=== PATIENT | male | born 1950 | race Caucasian/White ===

== ENCOUNTER → 2018-02-17 08:50 | Outpatient (CLI) | payer OTHER, SELFPAY ==
[2018-02-17 09:24] LABS: Add Manual Diff / Slide Review NO; Eosinophils Percent Auto 2.9 % (2-4); Hematocrit 51.8 % (41-53); Hemoglobin 17.7 g/dL (13.5-17.5); Lymphocytes Percent Auto 36.2 % (25-40); Mean Corpuscular HGB Conc 34.1 % (30-36); Mean Corpuscular Hemoglobin 30.8 PG (26-34); Mean Corpuscular Volume 90.3 fL (80-100); Monocytes Percent Auto 9.7 % (3-14); Neutrophils Absolute Auto 4300 /uL (3000-5900); Neutrophils Percent Auto 50.2 % (50-75); Platelet Count 150 X10^3/uL (150-400); Red Blood Cell Count 5.74 X10^6/uL (4.5-5.9); Red Cell Distribution Width 14.5 % (11.6-14.8); White Blood Cell Count 8.5 X10^3/uL (4.5-11.0)
[2018-02-17 09:28] LABS: Alanine Aminotransferase 32 IU/L (21-72); Albumin 4.4 g/dL (3.5-5.0); Albumin Globulin Ratio 1.6 (1.0-2.8); Alkaline Phosphatase 39 U/L (38-126); Aspartate Aminotransferase 42 IU/L (17-59); BUN Creatinine Ratio 18.9 (6-22); Bilirubin Total 1.5 mg/dL (0.2-1.3); Blood Urea Nitrogen 17 mg/dL (9-20); Calcium 9.3 mg/dL (8.4-10.2); Carbon Dioxide 26 mmol/L (22-32); Chloride 102 mmol/L (98-107); Estimated Glomerular Filt Rate > 60.0 mL/min (>60); Globulin 2.8 g/dL (1.7-4.1); Glucose 103 mg/dL (80-110); Potassium 4.4 mmol/L (3.4-5.1); Sodium 136 mmol/L (137-145); Total Protein 7.2 g/dL (6.3-8.2)
[2018-02-17 09:39] LABS: HEMOLYSIS 79 (0-50)
[2018-02-17 09:58] LABS: Carcinoembryonic Antigen 1.9 ng/mL (0.1-3.0)
== END ==
PROVIDERS: Family Provider Internal Medicine; PCP Internal Medicine; Visit Provider Nurse Practitioner Gerontology
DX: C18.9 Malignant neoplasm of colon, unspecified (principal)
CPT/HCPCS: 80053; 82378; 85025

== ENCOUNTER → 2018-05-29 07:44 | Outpatient (CLI) | payer OTHER, SELFPAY ==
[2018-05-29 08:46] LABS: Alanine Aminotransferase 38 IU/L (21-72); Albumin 4.5 g/dL (3.5-5.0); Albumin Globulin Ratio 1.6 (1.0-2.8); Alkaline Phosphatase 48 U/L (38-126); Aspartate Aminotransferase 34 IU/L (17-59); BUN Creatinine Ratio 17.8 (6-22); Bilirubin Total 1.5 mg/dL (0.2-1.3); Blood Urea Nitrogen 16 mg/dL (9-20); Calcium 9.9 mg/dL (8.4-10.2); Carbon Dioxide 30 mmol/L (22-32); Chloride 102 mmol/L (98-107); Estimated Glomerular Filt Rate > 60.0 mL/min (>60); Globulin 2.9 g/dL (1.7-4.1); Glucose 103 mg/dL (80-110); HEMOLYSIS < 15 (0-50); Potassium 4.6 mmol/L (3.4-5.1); Sodium 143 mmol/L (137-145); Total Protein 7.4 g/dL (6.3-8.2)
[2018-05-29 09:14] LABS: Add Manual Diff / Slide Review NO; Basophils Percent Auto 0.9 % (0-2); Eosinophils Percent Auto 3.8 % (2-4); Lymphocytes Percent Auto 34.9 % (25-40); Mean Corpuscular HGB Conc 33.4 % (30-36); Mean Corpuscular Volume 89.9 fL (80-100); Monocytes Percent Auto 9.3 % (3-14); Neutrophils Absolute Auto 3700 /uL (3000-5900); Neutrophils Percent Auto 51.1 % (50-75); Platelet Count 167 X10^3/uL (150-400); Red Blood Cell Count 6.01 X10^6/uL (4.5-5.9); Red Cell Distribution Width 14.2 % (11.6-14.8); White Blood Cell Count 7.1 X10^3/uL (4.5-11.0)
--- NOTE | 2018-05-29 09:21 | DI.CT.S_ITS ---
PROCEDURE: CT CHEST ABD PEL W CON INDICATIONS: follow up surveillance colon cancer TECHNIQUE: After the administration of oral and intravenous contrast, 5 mm thick sections acquired from the lung apices to the symphysis. 5 mm coronal and sagittal reformats were performed, with additional 7 mm coronal MIP reformats through the lungs. For radiation dose reduction, the following was used: automated exposure control, adjustment of mA and/or kV according to patient size. COMPARISON: Outside Facility, RG, CT CHEST/ABD/PEL W/CONTRAST, 06/01/2016, 14:52. Outside Facility, RG, CT CHEST/ABD/PEL W/CONTRAST, 05/27/2015, 15:36. Outside [facility], RG, CT THORAX/ABDOMEN/PELVIS WITH CONTRAST, 05/27/2014, 15:27. [facility], CT, CHEST/ABD/PEL WITH CONTRAST, 05/30/2017, 11:03. Outside Facility, RG, CT THORAX/ABDOMEN/PELVIS WITH CONTRAST, 05/17/2013, 13:53. Outside Facility, RG, CT THORAX WITH CONTRAST, 06/26/2013, 11:01. (The outside CT reports are absent or incomplete.) FINDINGS: Image quality: Excellent. CHEST: Lungs and pleura: No acute airspace opacities. Within the left upper lobe on series 3 image 34, there is a 3-4 mm nodule again seen, and is unchanged compared to priors dating back to 2013. No additional pulmonary nodules are detected. No pleural effusions or pneumothorax. Central and peripheral airways appear patent and normal in caliber. Mediastinum: Heart size is normal. Coronary artery calcifications are seen. No pericardial effusion. No mediastinal or hilar adenopathy by size criteria. Thoracic aorta and central pulmonary arteries are normal in size. Esophagus is normal in caliber. No hiatal hernia. Chest wall: No axillary or supraclavicular adenopathy by size criteria. Thyroid gland demonstrates no significant CT abnormality. ABDOMEN: Solid organs: Liver is normal in size and enhancement. Gallbladder demonstrates no significant CT abnormality. Biliary system is non dilated. Pancreas enhances normally. Spleen is normal in size and enhancement. No adrenal nodules. Kidneys demonstrate normal size and enhancement, without hydronephrosis. Incidental note is made of a circumaortic left renal vein. Peritoneum and bowel: Status post right partial colectomy. Bowel loops demonstrate normal wall thickness and caliber. No free fluid or air. Diverticulosis is seen, without findings of active diverticulitis. Nodes and vessels: No retroperitoneal or mesenteric adenopathy by size criteria. Aorta and inferior vena cava are normal in size. Atherosclerotic calcification is noted. Miscellaneous: No ventral hernias. PELVIS: Genitourinary: Bladder wall thickness is normal. The prostate gland is prominent, measuring 6 cm transversely. Miscellaneous: No inguinal adenopathy. Bilateral fat containing inguinal hernias are seen, left worse than right. Bones: No suspicious bony lesions. No vertebral body compression fractures. Mild dextroconvex scoliotic curvature is seen. Degenerative changes are seen, which are most prominent of the lower lumbar spine. IMPRESSION: Status post right hemicolectomy. No findings of local recurrence are seen. There is a stable 3-4 mm nodule involving the left upper lobe. This is stable compared to 2014 and regarded to be benign. No danyelle findings of metastatic disease are seen. Incidental note is made of: Diverticulosis is seen, without findings of active diverticulitis. Bilateral fat containing inguinal hernias, left worse than right. Atherosclerotic calcifications including coronary artery calcification Circumaortic left renal vein Prominent prostate gland Dictated by: Moncho Suh M.D. on 05/29/2018 at 10:04 Approved by: Moncho Suh M.D. on 05/29/2018 at 10:14
[2018-05-29 09:50] LABS: Carcinoembryonic Antigen 1.7 ng/mL (0.1-3.0)
== END ==
PROVIDERS: PCP Internal Medicine; Visit Provider Nurse Practitioner Gerontology
DX: C18.9 Malignant neoplasm of colon, unspecified (principal); R91.1 Solitary pulmonary nodule; K57.90 Diverticulosis of intestine, part unspecified, without perforation or abscess without bleeding; K40.20 Bilateral inguinal hernia, without obstruction or gangrene, not specified as recurrent; I25.10 Atherosclerotic heart disease of native coronary artery without angina pectoris; N40.0 Benign prostatic hyperplasia without lower urinary tract symptoms
CPT/HCPCS: 36415; 71260; 74177; 80053; 82378; 85025; Q9967

== ENCOUNTER 2018-06-01 10:30 | Oncology outpatient (ONC) | payer OTHER, SELFPAY ==
--- NOTE | 2018-02-20 07:46 | P.PNONC_ITS ---
Assessment and Plan (1) Colon cancer Status: Acute 02/20/18 07:45 The patient is a 67 year old Male who is being seen in the clinic 02/20/2018 for History of stage III colon cancer surgery May 2013 followed by adjuvant chemotherapy with FOLFOX. Treated [facility]. PN -Subjective Interval history: The patient is a 67 year old Male who is being seen in the clinic 02/20/2018 for History of stage III colon cancer surgery May 2013 followed by adjuvant chemotherapy with FOLFOX. Treated [facility]. Timeline: He was being managed at [facility] for outpatient checkups and had a hematest positive routine stool specimen. He underwent colonoscopy with finding of an ascending colon carcinoma. CT imaging according to the patient was negative; he did not have a PET scan. He underwent a right hemicolectomy with finding of a adenocarcinoma and a villous adenoma and metastatic carcinoma in 1 of 14 nodes. The patient reports that he underwent adjuvant chemotherapy with a full 12 cycles however oxaliplatin was stopped at cycle 9. This is due to neuropathy. Subsequently he has had continued tingling in his feet and hand pain related to the neuropathy. Home Medications and Allergies Home Medications Medication Instructions Recorded Confirmed Type allopurinol 300 mg PO QDAY #0 03/02/17 History colchicine [Mitigare] 0.6 mg PO PRN PRN #0 03/02/17 History lisinopril 5 mg PO QDAY #0 03/02/17 History rosuvastatin [Crestor] 10 mg PO QDAY #0 03/02/17 History Allergies Allergy/AdvReac Type Severity Reaction Status Date / Time No Known Allergies Allergy Uncoded 11/02/17 12:45
--- NOTE | 2018-02-27 08:54 | P.PNONC_ITS ---
Assessment and Plan (1) Colon cancer Current visit: No Status: Acute 02/27/18 08:54 The patient is a 67 year old Male who is being seen in the clinic 02/27/2018 for History of stage III colon cancer surgery May 2013 followed by adjuvant chemotherapy with FOLFOX. Treated [facility]. He presents today for routine surveillance. On exam no clinical findings to suggest disease recurrence. CBC, CMP unremarkable. CEA remains quite low at 1.9. The patient will be seeing his primary care provider Dr. Webster next week at which point he will take home FIT stool cards to test for occult blood. Most recent colonoscopy was May of 2017 at which point recommendation was to repeat in 3 years. Most recent imaging was a CT scan also May of 2017 which was without evidence of disease recurrence. Per NCCN guidelines we will repeat [address] scan this will bring the patient to 5 years. At which point we will continue imaging only if clinically indicated. Patient verbalizes understanding, agrees with the above plan of care. We will schedule a provider visit after CT to review results. We will also check CBC, CMP, CEA. 02/27/18 11:29 - Time Spent with Patient 30 mins PN -Subjective Interval history: The patient is a 67 year old Male who is being seen in the clinic 02/27/2018 for History of stage III colon cancer surgery May 2013 followed by adjuvant chemotherapy with FOLFOX. Treated [facility]. Grady presents today for routine interval evaluation. He has no new complaints on exam today. He reports overall he is doing quite well, he and his recently bought a boat and he is very excited about getting out on the water. He had colonoscopy with Dr. Cr 06/07/2017. Nothing alarming on colonoscopy he does have sigmoid diverticulosis, multiple polyps also minor internal hemorrhoids. Recommendation is to repeat colonoscopy in [address] of chest abdomen pelvis May 30, 2017 was without evidence of recurrent disease. He does continue to have a solitary indeterminate 4 mm nodule, left upper lobe which is stable in size when compared to previous. Grady has no alarming complaints on exam today. Bowel movements are unchanged. No blood is noted in stool. No nausea, abdominal pain, bloating, early satiety. No unexplained weight loss, Appetite is excellent. Energy level is excellent as well. No new pain, no new lumps or bumps. No headaches. Hx of present illness He was being managed at [facility] for outpatient checkups and had a hematest positive routine stool specimen. He underwent colonoscopy with finding of an ascending colon carcinoma. CT imaging according to the patient was negative; he did not have a PET scan. He underwent a right hemicolectomy with finding of a adenocarcinoma and a villous adenoma and metastatic carcinoma in 1 of 14 nodes. The patient reports that he underwent adjuvant chemotherapy with a full 12 cycles however oxaliplatin was stopped at cycle 9. This is due to neuropathy. Subsequently he has had continued tingling in his feet and hand pain related to the neuropathy. Past Medical History The patient's past medical history is significant for: He was worked up for erythrocytosis and deemed not to have polycythemia rubra vera this is from very limited [place] notes. CT ruled out a renal source aneurysm erythropoietin level was normal he had no apneic spells. Hyperlipidemia Gout Back surgery in the No diabetes Past Surgical History The patient's past surgical history includes: Colectomy Back surgery Tonsillectomy Colorectal Resection Staging Colorectal Primary Tumor T status not provided (TNM staging not provided) Colorectal Regional Nodes N1- Metastasis 1-3 nodes (nabil status not provided ) Colorectal Metastasis M0-No distal metastasis Home Medications and Allergies Home Medications Medication Instructions Recorded Confirmed Type allopurinol 300 mg PO QDAY #0 03/02/17 History colchicine [Mitigare] 0.6 mg PO PRN PRN #0 03/02/17 History lisinopril 5 mg PO QDAY #0 03/02/17 History rosuvastatin [Crestor] 10 mg PO QDAY #0 03/02/17 History Allergies Allergy/AdvReac Type Severity Reaction Status Date / Time No Known Allergies Allergy Uncoded 11/02/17 12:45 Exam - Constitutional positive no acute distress, positive obese - Routine HEENT Exam Head: Present: normocephalic, atraumatic Eye: Present: conjunctivae pink. Absent: conjunctival icterus, scleral injection ENT: Present: mucous membranes moist, oropharynx clear - Routine Neck Exam Present: supple. Absent: lymphadenopathy - Routine Respiratory Exam Present: Clear to auscultation bilaterally. Absent: rales, rhonchi, wheezes - Routine Cardiovascular Exam Present: RRR, S1, S2. Absent: murmur, gallop, rubs, JVD - Routine Abdominal Exam Present: soft, normoactive bowel sounds. Absent: tenderness, distended, organomegaly, mass Comments: obese abdomen - Routine Extremities Exam Absent: edema, calf tenderness - Routine Skin Exam Present: intact, normal turgor. Absent: petechiae, rash - Routine Neurological Exam Present: alert, oriented X3 - Routine Psychiatric Exam Present: normal affect
[2018-02-27 11:07] VITALS: BP 149/78; PULSE 80; RESP 18; TEMP 36.3; O2SAT 95
[2018-06-01 10:28] VITALS: BP 119/79; PULSE 69; RESP 69; TEMP 36.4; O2SAT 95
--- NOTE | 2018-06-01 10:31 | P.PNONC_ITS ---
PN -Subjective Interval history: The patient is a 67 year old Male who is being seen in the clinic 06/01/2018 for History of stage III colon cancer surgery May 2013 followed by adjuvant chemotherapy with FOLFOX. Treated [facility] [place]. Grady presents today for routine interval evaluation. he underwent surveillance CT 05/29/2018 which was without evidence of disease recurrence. There were incidental findings indluding diverticulitis without diverticulosis, stable 3-4 mm nodule left upper lobe of the lung. Stable when compared to films dating back as far as 2013. Most recent colonoscopy was 2016, he is scheduled for another 2019. He has no new complaints on exam today. He reports overall he is doing quite well. he and his have been following weight watchers diet he has lost 30 lbs, they also have started a walking program. Since losing the weight he has been aboe to DC his lisinopril. BP's have been below 120 systolic. Grady has no alarming complaints on exam today. Bowel movements are unchanged. No blood is noted in stool. No nausea, abdominal pain, bloating, early satiety. No unexplained weight loss, Appetite is excellent. Energy level is excellent as well. No new pain, no new lumps or bumps. No headaches. Hx of present illness He was being managed at [facility] for outpatient checkups and had a hematest positive routine stool specimen. He underwent colonoscopy with finding of an ascending colon carcinoma. CT imaging according to the patient was negative; he did not have a PET scan. He underwent a right hemicolectomy with finding of a adenocarcinoma and a villous adenoma and metastatic carcinoma in 1 of 14 nodes. The patient reports that he underwent adjuvant chemotherapy with a full 12 cycles however oxaliplatin was stopped at cycle 9. This is due to neuropathy. Subsequently he has had continued tingling in his feet and hand pain related to the neuropathy. Past Medical History The patient's past medical history is significant for: He was worked up for erythrocytosis and deemed not to have polycythemia rubra vera this is from very limited [place] notes. CT ruled out a renal source aneurysm erythropoietin level was normal he had no apneic spells. Hyperlipidemia Gout Back surgery in the No diabetes Past Surgical History The patient's past surgical history includes: Colectomy Back surgery Tonsillectomy Colorectal Resection Staging Colorectal Primary Tumor T status not provided (TNM staging not provided) Colorectal Regional Nodes N1- Metastasis 1-3 nodes (nabil status not provided ) Colorectal Metastasis M0-No distal metastasis Home Medications and Allergies Home Medications Medication Instructions Recorded Confirmed Type allopurinol 300 mg PO QDAY #0 03/02/17 History colchicine [Mitigare] 0.6 mg PO PRN PRN #0 03/02/17 History lisinopril 5 mg PO QDAY #0 03/02/17 History rosuvastatin [Crestor] 10 mg PO QDAY #0 03/02/17 History Allergies Allergy/AdvReac Type Severity Reaction Status Date / Time No Known Allergies Allergy Uncoded 11/02/17 12:45 Exam - Constitutional positive no acute distress - Routine HEENT Exam Eye: Present: conjunctivae pink. Absent: conjunctival icterus, scleral injection ENT: Present: mucous membranes moist, oropharynx clear - Routine Neck Exam Present: supple. Absent: lymphadenopathy - Routine Respiratory Exam Present: Clear to auscultation bilaterally. Absent: rales, rhonchi, wheezes - Routine Cardiovascular Exam Present: RRR, S1, S2. Absent: murmur, gallop, rubs, JVD - Routine Abdominal Exam Present: soft, normoactive bowel sounds. Absent: tenderness, distended, organomegaly, mass - Routine Extremities Exam Absent: edema, calf tenderness - Routine Skin Exam Present: intact, normal turgor. Absent: petechiae - Routine Neurological Exam Present: alert, oriented X3 - Routine Psychiatric Exam Present: normal affect Assessment and Plan (1) Colon cancer Current visit: No Status: Acute The patient is a 67-year-old male who carries a diagnosis of stage III colon cancer. Reassuringly on exam today no clinical signs or symptoms to suggest disease recurrence. Additionally, surveillance CT May 29, 2018 was without evidence of disease as well. CEA remains appropriately low. Most recent colonoscopy was 2017 with recommendation to repeat in 3 years. CBC, CMP largely unremarkable. H&H just mildly elevated with a hemoglobin of 18.0 hematocrit 54.0. Previously H&H have been normal. The pt has appointment with Dr Webster PCP in Aug he will follow up. Reviewed incidental findings on CT scan including left upper lobe nodule which has been stable since 2003. Patient was previously aware of this nodule. He understands no further surveillance imaging is indicated. Additionally, on CT scan it was indicated ?prostate is prominent?. Also discussed this with the patient he states ?this is normal I have been told this before?. Most recent PSA was 2017 which was normal. Patient will also discuss this with his primary care provider Return to clinic in 1 year for provider visit CBC CMP CEA. - Time Spent with Patient 30 mins
== END 2018-06-02 12:00 ==
PROVIDERS: Family Provider Internal Medicine; PCP Internal Medicine; Visit Provider Nurse Practitioner Gerontology
DX: Z08 Encounter for follow-up examination after completed treatment for malignant neoplasm (principal); Z85.038 Personal history of other malignant neoplasm of large intestine
CPT/HCPCS: 99214

== ENCOUNTER → 2018-09-20 10:34 | Outpatient (CLI) | payer OTHER, SELFPAY ==
[2018-09-20 11:21] LABS: Erythrocyte Sedimentation Rate 1 MM/HR (0-15)
[2018-09-20 12:03] LABS: Uric Acid 4.6 mg/dL (3.5-8.5)
== END ==
PROVIDERS: Family Provider Internal Medicine; PCP Internal Medicine; Visit Provider Internal Medicine
DX: M10.00 Idiopathic gout, unspecified site (principal)
CPT/HCPCS: 36415; 84550; 85651

== ENCOUNTER → 2019-03-07 08:05 | Outpatient (CLI) | payer OTHER, SELFPAY ==
[2019-03-07 08:53] LABS: Alanine Aminotransferase 28 IU/L (21-72); Albumin 4.3 g/dL (3.5-5.0); Albumin Globulin Ratio 1.5 (1.0-2.8); Alkaline Phosphatase 46 U/L (38-126); Aspartate Aminotransferase 36 IU/L (17-59); BUN Creatinine Ratio 23.3 (6-22); Bilirubin Total 1.8 mg/dL (0.2-1.3); Blood Urea Nitrogen 21 mg/dL (9-20); Calcium 9.9 mg/dL (8.4-10.2); Carbon Dioxide 27 mmol/L (22-32); Chloride 102 mmol/L (98-107); Cholesterol 179 mg/dL (140-199); Estimated Glomerular Filt Rate > 60.0 mL/min (>60); Globulin 2.8 g/dL (1.7-4.1); Glucose 101 mg/dL (80-110); HDL Cholesterol 57 mg/dL (40-60); HEMOLYSIS < 15 (0-50); LDL Cholesterol Calculated 91 mg/dL (<100); Potassium 4.3 mmol/L (3.4-5.1); Sodium 139 mmol/L (137-145); Total Protein 7.1 g/dL (6.3-8.2); Triglycerides 156 mg/dL (35-150); Uric Acid 5.3 mg/dL (3.5-8.5)
== END ==
PROVIDERS: PCP Internal Medicine; Visit Provider Internal Medicine
DX: M10.00 Idiopathic gout, unspecified site (principal); I10 Essential (primary) hypertension; E78.00 Pure hypercholesterolemia, unspecified
CPT/HCPCS: 36415; 80053; 80061; 84550

== ENCOUNTER → 2019-05-28 07:47 | Outpatient (CLI) | payer OTHER, SELFPAY ==
[2019-05-28 07:58] LABS: Add Manual Diff / Slide Review NO; Basophils Absolute Auto 100 /uL (0-100); Basophils Percent Auto 1.1 % (0-2); Eosinophils Absolute Auto 200 /uL (0-450); Eosinophils Percent Auto 2.8 % (2-4); Hematocrit 53.8 % (41-53); Hemoglobin 18.1 g/dL (13.5-17.5); Lymphocytes Absolute Auto 2500 /uL (1100-4500); Lymphocytes Percent Auto 39.7 % (25-40); Mean Corpuscular HGB Conc 33.5 % (30-36); Mean Corpuscular Hemoglobin 30.6 PG (26-34); Mean Corpuscular Volume 91.1 fL (80-100); Monocytes Absolute Auto 600 /uL (0-900); Monocytes Percent Auto 9.2 % (3-14); Neutrophils Absolute Auto 3000 /uL (1500-7000); Neutrophils Percent Auto 47.2 % (50-75); Platelet Count 153 X10^3/uL (150-400); Red Blood Cell Count 5.91 X10^6/uL (4.5-5.9); Red Cell Distribution Width 14.5 % (11.6-14.8); White Blood Cell Count 6.4 X10^3/uL (4.5-11.0)
[2019-05-28 08:21] LABS: Alanine Aminotransferase 25 IU/L (<50); Albumin 4.5 g/dL (3.5-5.0); Albumin Globulin Ratio 1.7 (1.0-2.8); Alkaline Phosphatase 44 U/L (38-126); Aspartate Aminotransferase 36 IU/L (17-59); Bilirubin Total 1.9 mg/dL (0.2-1.3); Blood Urea Nitrogen 18 mg/dL (9-20); Calcium 9.6 mg/dL (8.4-10.2); Carbon Dioxide 29 mmol/L (22-32); Chloride 103 mmol/L (98-107); Estimated Glomerular Filt Rate > 60.0 mL/min (>60); Globulin 2.7 g/dL (1.7-4.1); Glucose 112 mg/dL (80-110); HEMOLYSIS < 15 (0-50); Potassium 4.6 mmol/L (3.4-5.1); Sodium 139 mmol/L (137-145); Total Protein 7.2 g/dL (6.3-8.2)
[2019-05-28 08:52] LABS: Carcinoembryonic Antigen 2.5 ng/mL (0.1-3.0)
== END ==
PROVIDERS: Family Provider Internal Medicine; PCP Internal Medicine; Visit Provider Internal Medicine Hematology & Oncology
DX: C18.9 Malignant neoplasm of colon, unspecified (principal)
CPT/HCPCS: 36415; 80053; 82378; 85025

== ENCOUNTER → 2019-06-06 07:57 | Outpatient (CLI) | payer OTHER, SELFPAY ==
--- NOTE | 2019-06-06 08:42 | DI.CT.S_ITS ---
PROCEDURE: CT CHEST ABD PEL W CON INDICATIONS: COLON CANCER, LUNG NODULES TECHNIQUE: After the administration of oral and intravenous contrast, 5 mm thick sections acquired from the lung apices to the symphysis. 5 mm coronal and sagittal reformats were performed, with additional 7 mm coronal MIP reformats through the lungs. For radiation dose reduction, the following was used: automated exposure control, adjustment of mA and/or kV according to patient size. COMPARISON: [facility], CT, CT CHEST ABD PEL W CON, 05/29/2018, 10:04. FINDINGS: Image quality: Excellent. CHEST: Lungs and pleura: No acute airspace opacities. There is a single stable nodule in the anterior left upper lobe best seen on sagittal imaging series 5 image 31. No suspicious nodules or masses. No pleural effusions or pneumothorax. Central and peripheral airways appear patent and normal in caliber. Mediastinum: Heart size is normal. Moderate coronary artery calcification. No pericardial effusion. No mediastinal or hilar adenopathy by size criteria. Thoracic aorta and central pulmonary arteries are normal in size. Esophagus is normal in caliber. No hiatal hernia. Chest wall: No axillary or supraclavicular adenopathy by size criteria. Thyroid gland is is normal. ABDOMEN: Solid organs: Liver is normal in size and enhancement. Gallbladder appears normal. Biliary system is non dilated. Pancreas enhances normally. Spleen is normal in size and enhancement. No adrenal nodules. Kidneys demonstrate normal size and enhancement, without hydronephrosis. Peritoneum and bowel: Ileocolonic anastomosis at the hepatic flexure. No adjacent mesenteric soft tissue mass. Moderate diverticulosis of the distal descending and proximal sigmoid colon. Bowel loops demonstrate normal wall thickness and caliber. No free fluid or air. Nodes and vessels: No retroperitoneal or mesenteric adenopathy by size criteria. Aorta and inferior vena cava are normal in size. Miscellaneous: No ventral hernias. PELVIS: Genitourinary: Bladder wall thickness is normal. The prostate gland is moderately enlarged. Miscellaneous: Small moderate sized bilateral fat containing hernias, left greater than right. No adenopathy. Bones: No suspicious bony lesions. No vertebral body compression fractures. IMPRESSION: 1. No evidence of metastatic disease in the chest, abdomen, or pelvis. 2. Benign anterior left upper lobe lung nodule. 3. Post right colectomy. 4. Descending and sigmoid diverticulosis. 5. Prostatomegaly. Dictated by: Cherise Cheney M.D. on 06/06/2019 at 10:47 Approved by: Cherise Cheney M.D. on 06/06/2019 at 10:57
== END ==
PROVIDERS: Family Provider Internal Medicine; PCP Internal Medicine; Visit Provider Internal Medicine Hematology & Oncology
DX: C18.9 Malignant neoplasm of colon, unspecified (principal); R91.8 Other nonspecific abnormal finding of lung field; K57.30 Diverticulosis of large intestine without perforation or abscess without bleeding; N40.0 Benign prostatic hyperplasia without lower urinary tract symptoms; Z98.0 Intestinal bypass and anastomosis status
CPT/HCPCS: 71260; 74177; Q9967

== ENCOUNTER → 2019-06-13 14:43 | Outpatient (CLI) | payer OTHER, SELFPAY ==
--- NOTE | 2019-06-13 | DI.ECHO.S_ITS ---
[facility] +---------+ : : [address] [place] : : : : [id number] : : : : Phone: [phone]+ Echocardiogram Report + + :Name: RIVER ROBB Study Date: 06/13/2019 Height: 64 in : :[facility] Weight: 190 lb : : Gender: Male BSA: 1.9 m2 : :: 1950 Age: 68 yrs BP: 138/92 mmHg: :Reason For Study: Chronic Respiratory Failure : : Performed By: [facility] Staff : :Referring: RYANN ZURITA : + + Interpretation Summary The left ventricle is normal in size. The ejection fraction is estimated to be 60-65%. The right ventricle is normal in size and function. No significant valvular pathology seen. Procedure: A two-dimensional transthoracic echocardiogram with color flow and Doppler was performed. The study quality was technically difficult. There is no prior echocardiogram noted for this patient. The patient was in normal sinus rhythm during the exam. Left Ventricle: The left ventricle is normal in size. There is normal left ventricular wall thickness. There is no thrombus. Left ventricular systolic function is normal. The ejection fraction is estimated to be 60-65%. Left ventricular wall motion is normal. Diastolic parameters suggest a relaxation abnormality of the left ventricle, consistent with probable normal filling pressures. Right Ventricle: The right ventricle is normal in size and function. Atria: The left atrial size is normal. Right atrial size is normal. Chiari network (normal variant) is noted. The interatrial septum is intact with no evidence for an atrial septal defect. Mitral Valve: The mitral valve leaflets are slightly calcified. There is trace mitral regurgitation. Aortic Valve: There is mild aortic valve sclerosis. The aortic valve is trileaflet. The aortic valve opens well. There is discrete nodular thickening of the non- coronary cusp. There is no aortic valve stenosis. There is trace aortic regurgitation. Tricuspid Valve: The tricuspid valve is normal in structure and function. There is trace tricuspid regurgitation. Pulmonary artery pressures cannot be estimated because of the lack of a measurable TR jet velocity. Pulmonic Valve: The pulmonic valve is not well seen, but is grossly normal. There is trace pulmonic regurgitation. Great Vessels: The aortic root is borderline dilated. The ascending aorta is at the upper limits of normal in size. The pulmonary artery is normal size. The IVC is of normal diameter and collapses greater than 50% with a sniff. This suggests a low right atrial pressure of 3 mm Hg. Pericardium/ Pleura There is no pericardial effusion. There is an anterior echo-free space consistent with a fat pad. There is no pleural effusion. MMode/2D Measurements & Calculations LVIDd: 4.0 cm LVOT diam: 2.1 cm LVIDs: 2.5 cm Ao root diam: 3.7 cm FS: 37.1 % Aortic Jxn: 3.3 cm EPSS: 0.79 cm asc Aorta Diam: 3.7 cm IVSd: 1.00 cm LVPWd: 1.2 cm LV [place]. diameter/BSA (cm/m^2): 2.1 LV sys. diameter/BSA (cm/m^2): 1.3 LA A2 area: 20.9 cm2 RA long axis: 4.6 cm LA A4 area: 18.1 cm2 RA area: 11.8 cm2 LA length (vol): 5.1 cm RA vol: 26.0 ml LA vol: 62.7 ml RA : 13.6 ml/m2 LA vol index: 32.8 ml/m2 TAPSE: 2.0 cm Doppler Measurements & Calculations Ao V2 max: 131.4 cm/sec LVOT Max Francisco: 112.7 cm/sec Ao V2 mean: 101.5 cm/sec LV V1 max P.1 mmHg Ao max P.9 mmHg LV V1 VTI: 25.8 cm Ao mean P.4 mmHg ABDOULAYE(I,D): 3.0 cm2 Ao V2 VTI: 29.3 cm ABDOULAYE(V,D): 2.9 cm2 sev ratio: 0.88 ABDOULAYE indexed to BSA (cm^2/m^2): 1.5 MV E max francisco: 74.4 cm/sec PA V2 max: 105.4 cm/sec MV A max francisco: 100.1 cm/sec PA V2 mean: 71.9 cm/sec MV E/A: 0.74 PA mean P.4 mmHg Med Peak E' Francisco: 6.3 cm/sec PA Accel Time: 0.13 sec E/E' med: 11.8 Lat Peak E' Francisco: 9.5 cm/sec E/E' lat: 7.8 E/e' average: 9.8 MV dec time: 0.24 sec SV(LVOT): 86.5 ml Reading Physician:06:01 PM
== END ==
PROVIDERS: PCP Internal Medicine; Visit Provider Internal Medicine
DX: J96.11 Chronic respiratory failure with hypoxia (principal)
CPT/HCPCS: 93306

== ENCOUNTER → 2020-02-05 08:21 | Outpatient (CLI) | payer OTHER, SELFPAY ==
[2020-02-06 08:03] LABS: COVID19 Sendout Not Detected (Not Detect)
== END ==
PROVIDERS: PCP Internal Medicine; Visit Provider Physician Assistant
DX: Z01.812 Encounter for preprocedural laboratory examination (principal)
CPT/HCPCS: 87635

== ENCOUNTER → 2020-05-26 10:03 | Outpatient (CLI) | payer OTHER, SELFPAY ==
[2020-05-28 08:25] LABS: COVID19 Sendout Not Detected (Not Detect)
== END ==
PROVIDERS: PCP Student in an Organized Health Care Education/Training Program; Visit Provider Physician Assistant
DX: Z11.59 Encounter for screening for other viral diseases (principal)
CPT/HCPCS: 87635

== ENCOUNTER 2020-05-29 07:22 | Day surgery (SDC) | payer OTHER, SELFPAY ==
--- NOTE | 2020-05-29 | PATH_ITS ---
[facility] Accession Number: [id number] . 01 Material submitted: . PART A: colon - COLON POLYP AT 90CM PART B: colon - COLON POLYP AT 50CM . 01 Clinical history: . SDC . 02 Diagnosis: A. Colon, Polyp at 90 cm, Biopsy: Benign lymphoid aggregate. . B. Colon, Polyp at 50 cm, Biopsy: Benign lymphoid aggregate. MRV 06/03/2020 1309 Local . 02 Electronically signed: . Candice Pena MD, Pathologist NPI- [id number] . 01 Gross description: . A. Received in formalin, labeled polyp at 90 cm, and consists of a 0.5 x 0.3 x 0.2 cm stevenson-pink fragment of soft tissue, which is entirely submitted in cassette A1. B. Received in formalin, labeled polyp at 50 cm, and consists of a 0.5 x 0.5 x 0.2 cm stevenson fragment of soft tissue, which is entirely submitted in cassette B1. ([id number]) /MRV 05/30/2020 1556 Local . 02 Microscopic: . A. Additional levels were examined. . B. Additional levels were examined. . 02 Pathologist provided ICD-10: K63.5 . 02 CPT . 496422, [id number] Performed at: 01 [facility] [address], [place], [place] [id number] MD Cory Ogden MD Phone: [phone] Performed at: 02 [facility] [address] [place], [place] [id number] MD Candice Pena MD Phone: [phone]
[2020-05-29 07:41] VITALS: BP 155/91; PULSE 88; RESP 20; TEMP 36.6; O2SAT 95; BMI 34.1
[2020-05-29] MEDS: LACTATED RINGERS 1,000 ML 200 ML IV (07:51)
--- NOTE | 2020-05-29 08:22 | PM.HP.1 ---
History of Present Illness History of Present Illness Date Patient Seen: 05/29/20 Time Patient Seen: 08:10 Chief complaint: SDC Narrative: The patient is a gentleman here for screening colonoscopy. He had a right hemicolectomy for colon cancer 6 years ago. It has been about 3 years since his last colonoscopy. Patient History Medical History Enlarged prostate (Acute) History of colon cancer (Acute) PAUL (obstructive sleep apnea) (Acute) Surgical History Status post right hemicolectomy (Acute) Family & Social History Social History: household members spouse Tobacco & Substance use: Smoking Status Never smoker alcohol intake frequency a few times a week Substance Use Type does not use Meds Home Medications and Allergies Home Medications Medication Instructions Recorded Confirmed Type allopurinol 300 mg PO QDAY #0 03/02/17 05/29/20 History colchicine [Mitigare] 0.6 mg PO PRN PRN #0 03/02/17 05/29/20 History rosuvastatin [Crestor] 10 mg PO QDAY #0 03/02/17 05/29/20 History losartan 25 mg PO Q OTHER DAY 05/29/20 05/29/20 History Allergies Allergy/AdvReac Type Severity Reaction Status Date / Time No Known Drug Allergies Allergy Verified 05/29/20 07:41 Review of Systems Review of Systems Narrative: History of gout last attack months ago. Uses colchicine as needed. ROS: Yes All systems reviewed with the patient and are negative except as otherwise documented Exam Vital Signs (past 8 hours): - 05/29/20 07:41 Temperature 97.8 F Pulse Rate 88 Respiratory Rate 20 Blood Pressure 155/91 H Pulse Oximetry 95 Oxygen Delivery Method Room Air Narrative Exam Narrative: Pleasant cooperative patient no apparent distress. Lungs are clear to auscultation. No rales or rhonchi. Heart regular rate and rhythm no murmur gallop. Abdomen is soft nontender without mass. No obvious hernias. Patient is alert and oriented x3. Assessment & Plan Assessment & Plan narrative: The patient for a screening colonoscopy. I have discussed the procedure with them. Risks of bleeding, perforation which would necessitate major operation, failure to find remove all lesions, the potential tattoo were all discussed. All questions were answered. They wished to proceed.
[2020-05-29] MEDS: fentaNYL 250 MCG/5 ML INJ IV (08:24)
[2020-05-29] MEDS: MIDAZOLAM 5 MG/5 ML VIAL IV (08:24)
--- NOTE | 2020-05-29 08:24 | PM.PREOP ---
Pre-operative Note COVID-19 COVID-19 status: Negative Result date/Date tested (Pos, Neg/Pending): 05/26/20 Interval Note History & Physical reviewed/Exam performed by Physician: Yes Changes to H&P: No ASA Class (for procedural sedation): II
[2020-05-29 08:55] VITALS: BP 102/73; PULSE 63; TEMP 36.7; O2SAT 88
--- NOTE | 2020-05-29 08:56 | P.OP.ENDO_ITS ---
Operative Date/Time/Diagnoses Date of procedure: 05/29/20 Time of procedure: 08:41 Pre-op diagnosis: Screening examination. Personal history of colon cancer. Last scope was 3 years ago. Operation was 6 years ago. Post-op diagnosis: same Procedure & Clinicians Study performed: Colonoscopy. Cold biopsy. Same procedure as scheduled: Yes Indications: Screening/surveillance Surgeon: Alfredo Cr Procedure Notes SCOAP/Timeout: Performed Procedure in detail: The patient was placed in the left lateral decubitus position and underwent IV sedation directed by the surgeon consisting of fentanyl and Versed. Digital exam was remarkable for mildly enlarged prostate.. The scope was inserted and advanced through the rectum into the sigmoid, descending, and transverse colon. No lesions were seen except some diverticulo sis. I reach the anastomosis which looked healthy.(the patient has had a right hemicolectomy) The scope was gradually brought out. Two tiny Polyps were found at 90 and 50 cm from the anal verge. They removed with cold biopsy forceps. The scope was completely withdrawn into the rectum. The scope ultimately was retroflexed in the rectum. The appearance was normal except for scarring on minor hemorrhoids. The scope was removed and the patient tolerated the procedure well. The prep was very good. Findings: diverticulosis and polyp (Two tiny polyps) Specimen(s): other (Polyps) Complications: none Post-procedure Recommendations: Colonscopy in 3 years Follow up: as needed Disposition: PACU
[2020-05-29 08:58] VITALS: BP 103/77; PULSE 65; RESP 9; O2SAT 95
[2020-05-29 09:02] VITALS: BP 120/83; PULSE 75; RESP 12; TEMP 36.6; O2SAT 94
[2020-05-29 09:10] VITALS: BP 124/80; PULSE 77; RESP 17; TEMP 36.7; O2SAT 93
== END 2020-05-29 09:16 | disposition home or self-care (01) ==
PROVIDERS: PCP Student in an Organized Health Care Education/Training Program; Referring Provider Student in an Organized Health Care Education/Training Program; Visit Provider Specialist
PROC: 0DJD8ZZ Inspection of Lower Intestinal Tract, Via Natural or Artificial Opening Endoscopic (ICD-10-PCS; CPT 45378; principal; 2020-05-29 08:30)
DX: Z12.11 Encounter for screening for malignant neoplasm of colon (principal); Z86.010 Personal history of colon polyps; G47.30 Sleep apnea, unspecified; Z85.038 Personal history of other malignant neoplasm of large intestine; Z90.49 Acquired absence of other specified parts of digestive tract; K57.30 Diverticulosis of large intestine without perforation or abscess without bleeding; K63.5 Polyp of colon
CPT/HCPCS: 45380; J2250; J3010

== ENCOUNTER → 2020-09-08 11:00 | Oncology outpatient (ONC) | payer OTHER, SELFPAY ==
[2019-05-31 11:47] VITALS: BP 130/86; PULSE 82; RESP 18; TEMP 36.4; O2SAT 98
--- NOTE | 2019-05-31 12:02 | ONC.PN ---
PN -Subjective Interval history: ID/CC: 68 year old with colon cancer and erythrocytosis History of Present Illness: The patient is a 68 year old male with history of stage III colon cancer status post right hemicolectomy with finding of an adenocarcinoma and a villous adenoma and metastatic carcinoma in 1 of 14 nodes. He underwent adjuvant chemotherapy with a full 12 cycles; however oxaliplatin was stopped at cycle 9 due to neuropathy. Subsequently he has had continued tingling in his feet and hand pain related to the neuropathy. Interim Events He had C-scope about 2 years. Three polyps were found and next C-scope is due next May 2020. He has been getting CT scan once a year. No new symptoms. Good appetite. Weight is stable. He walks 5-6 times a week. No chest pain. No cough. he has some congestion when gets up in the morning, thought to be due to allergy. No pain in the abdomen. No blood in the stool. Stool occult test about 6 months ago was negative. He was also noted to mild erythrocytosis. He said that his primary care provider has ordered echo as well as sleep study. - Additional ROS All systems PM: reviewed and no additional remarkable complaints except as stated Home Medications and Allergies Home Medications Medication Instructions Recorded Confirmed Type allopurinol 300 mg PO QDAY #0 03/02/17 05/31/19 History colchicine [Mitigare] 0.6 mg PO PRN PRN #0 03/02/17 05/31/19 History lisinopril 2.5 mg PO QDAY #0 03/02/17 05/31/19 History rosuvastatin [Crestor] 10 mg PO QDAY #0 03/02/17 05/31/19 History Allergies Allergy/AdvReac Type Severity Reaction Status Date / Time No Known Allergies Allergy Uncoded 11/02/17 12:45 Exam Vital signs: Vital Signs Temp Pulse Resp BP Pulse Ox 05/31/19 11:47 97.6 F 82 18 130/86 98 Intake and Output 05/30/19 05/31/19 05/31/19 23:59 07:59 15:59 Other: Weight 90.6 kg Patient Weight 05/31/19 23:59 Weight 90.6 kg Narrative: Gen: WD, obese, NAD, pleasant and cooperative. HEENT: NCAT, EOMI, PERRLA, anicteric sclera. Neck: Supple, No palpable thyromegaly or lymphadenopathy. Respiratory: CTAB, no wheezes audible. No JVD Cardiovascular: RRR, S1 and S2 normal, no M/G/R. Abdomen: Soft, NTND, BS normal, no palpable organomegaly Extremities: No LE pitting edema. Lymphatic: no palpable lymph nodes in the neck, axillae, or groins. Neurological: AOx3, CN II-XII grossly intact. No focal motor or sensory deficit. Psychiatric: Good judgment and insight; normal affect; normal thought process; cooperative, no depression, no anxiety. Results - Labs Labs from 05/28/2019 WBC 6.4, hemoglobin 18.1, hematocrit 53.8, MCV 91.1, platelets 153 Sodium 139, potassium 4.6, chloride 103, BUN 18, creatinine 0.9, glucose level 112, calcium 9.6, total bilirubin 1.9, AST 36, ALT 25, alk-phos 44, total protein 7.2, albumin 4.5, globulin 2.7, CEA 2.5. Assessment and Plan (1) Colon cancer Overview: The patient is a 68-year-old male with history of stage III colon cancer status right colectomy, and adjuvant chemotherapy completed 2013. He has been on active surveillance for the past almost 5 years. No evidence of disease recurrence or metastasis. Assessment: Clinically, patient has been doing well. I do not think there is any worrisome signs or symptoms. I will continue current active surveillance including CT scan. Plan CT CAP w/contrast RTC in 2-3 weeks to review the result (2) Erythrocyanosis According to our medical records, patient has been having erythrocytosis since at least 2016. It is mildly elevated. Patient currently is being evaluated by his primary care provider Dr. Webster. Echo and sleep studies are considered. talked with him that I will see him after the echo and sleep studies are complete. Then will decide about further tests.
[2019-06-14 15:09] VITALS: BP 136/91; PULSE 62; RESP 16; TEMP 36.3; O2SAT 94
--- NOTE | 2019-06-14 15:11 | ONC.PN ---
PN -Subjective Interval history: ID/CC: 68 year old with colon cancer and erythrocytosis History of Present Illness: The patient is a 68 year old male with history of stage III colon cancer status post right hemicolectomy with finding of an adenocarcinoma and a villous adenoma and metastatic carcinoma in 1 of 14 nodes. He underwent adjuvant chemotherapy with a full 12 cycles; however oxaliplatin was stopped at cycle 9 due to neuropathy. Subsequently he has had continued tingling in his feet and hand pain related to the neuropathy. He is now on activr surveillance. His next C-scope is due next May 2020. He has been getting CT scan once a year Interim Events He presents today to review the CT scan results which was done on 06/06/2019. The scan showed no evidence of metastatic disease in the chest, abdomen, or pelvis; benign anterior left upper lobe non nodule was noted. Post right colectomy was noted. Descending and sigmoid diverticulosis was noted. Finally prostatomegaly was noted. He is scheduled for sleep study this week. - Additional ROS All systems PM: reviewed and no additional remarkable complaints except as stated Home Medications and Allergies Home Medications Medication Instructions Recorded Confirmed Type allopurinol 300 mg PO QDAY #0 03/02/17 06/14/19 History colchicine [Mitigare] 0.6 mg PO PRN PRN #0 03/02/17 06/14/19 History lisinopril 2.5 mg PO QDAY #0 03/02/17 06/14/19 History rosuvastatin [Crestor] 10 mg PO QDAY #0 03/02/17 06/14/19 History Allergies Allergy/AdvReac Type Severity Reaction Status Date / Time No Known Allergies Allergy Uncoded 11/02/17 12:45 Exam Vital signs: Vital Signs Temp Pulse Resp BP Pulse Ox 06/14/19 15:09 97.4 F L 62 16 136/91 H 94 Intake and Output 06/13/19 06/14/19 06/14/19 23:59 07:59 15:59 Other: Weight 91.3 kg Patient Weight 06/14/19 23:59 Weight 91.3 kg - Constitutional positive no acute distress, positive average body habitus, positive cooperative - Routine HEENT Exam Head: Present: normocephalic, atraumatic Eye: Present: EOMI, PERRL, normal accommodation. Absent: conjunctival icterus ENT: Present: mucous membranes moist - Routine Neck Exam Present: supple. Absent: lymphadenopathy, thyromegaly - Routine Chest/Breast/Axilla Exam Axillae: Absent: lymphadenopathy - Routine Respiratory Exam Present: Clear to auscultation bilaterally. Absent: wheezes - Routine Cardiovascular Exam Present: RRR, S1, S2. Absent: murmur, gallop, rubs - Routine Abdominal Exam Present: soft. Absent: tenderness, distended, organomegaly - Routine Extremities Exam Absent: edema - Routine Neurological Exam Present: alert, oriented X3, CN II-XII intact. Absent: sensory deficit, motor deficit - Routine Psychiatric Exam Present: normal affect Results - Labs Reviewed. Assessment and Plan (1) Erythrocytosis Overview: 68 year old with erythorocytosis of unknown etiology. Assessment: The etiology of the erythrocytosis is unknown at this moment. Patient has had history of nasal septum deviation. I talked with him that it probably can cause breathing issues. Patient now is scheduled for sleep study. I encouraged the patient to get the sleep study done. Then he needs to follow up with Dr. Webster for further evaluation and treatment. I told him and his that if the erythrocytosis is related to San[place] disorder, after treatment we would expect to see improvement. Plan: 1. Sleep study as scheduled 2. F/u with Dr. Webster 3. RTC in 3 months, repeat CBC (2) Colon cancer Overview: The patient is a 68-year-old male with history of stage III colon cancer status right colectomy, and adjuvant chemotherapy completed 2013. He has been on active surveillance for the past almost 5 years. No evidence of disease recurrence or metastasis. Assessment: I reviewed the CT scan results with the patient. There is no evidence to suggest disease recurrence or metastasis. I talked with the patient I will continue current active surveillance. Plan Active surveillance.
[2019-09-27 11:56] VITALS: BP 137/82; PULSE 68; RESP 18; TEMP 36.4; O2SAT 96
--- NOTE | 2019-09-27 12:09 | P.PNONC_ITS ---
PN -Subjective Interval history: ID/CC: 69 year old with colon cancer and erythrocytosis History of Present Illness: The patient is a 69 year old male with history of stage III colon cancer status post right hemicolectomy in with finding of an adenocarcinoma and a villous adenoma and metastatic carcinoma in 1 of 14 nodes. He underwent adjuvant adjuvant chemotherapy with FOLFOX. Treated [facility] near [place]. He completed a full 12 cycles; however oxaliplatin was stopped at cycle 9 due to neuropathy. Subsequently he has had continued tingling in his feet and hand pain related to the neuropathy. He is now on active surveillance. His next C-scope is due next May 2020. He has been getting CT scan once a year Interim Events He underwent night O2 monitoring at home. Per patient recall, he had total of 2 hours of hypoxia with O2 below 73%. He is planning to get sleep apnea study. He also saw Ney Edwards Deviating septum as noted. On 09/12/2019, outside labs showed WBC 7.3, H/H 18.7/54.2, PLT 174. - Additional ROS All systems PM: reviewed and no additional remarkable complaints except as stated Home Medications and Allergies Home Medications Medication Instructions Recorded Confirmed Type allopurinol 300 mg PO QDAY #0 03/02/17 09/27/19 History colchicine [Mitigare] 0.6 mg PO PRN PRN #0 03/02/17 09/27/19 History lisinopril 2.5 mg PO QDAY #0 03/02/17 09/27/19 History rosuvastatin [Crestor] 10 mg PO QDAY #0 03/02/17 09/27/19 History Allergies Allergy/AdvReac Type Severity Reaction Status Date / Time No Known Allergies Allergy Uncoded 11/02/17 12:45 Exam Vital signs: Vital Signs Temp Pulse Resp BP Pulse Ox 09/27/19 11:56 97.6 F 68 18 137/82 96 Intake and Output 09/26/19 09/27/19 09/27/19 23:59 07:59 15:59 Other: Weight 96.1 kg Patient Weight 09/27/19 23:59 Weight 96.1 kg Narrative: ECOG 1 Gen: Well developed, obese, NAD, pleasant and cooperative. HEENT: NCAT, EOMI, PERRLA, anicteric sclera. Neck: Supple, No palpable thyromegaly or lymphadenopathy. Respiratory: CTAB, no wheezes audible. No JVD Cardiovascular: RRR, S1 and S2 normal, no M/G/R. Abdomen: Soft, NTND, BS normal, no palpable organomegaly Extremities: No LE pitting edema. Lymphatic: no palpable lymph nodes in the neck, axillae, or groins. Neurological: AOx3, CN II-XII grossly intact. No focal motor or sensory deficit. Psychiatric: normal affect; no depression, no anxiety. Results - Labs Reviewed. See HPI. Assessment and Plan (1) Erythrocytosis Overview: 69 year old with erythrocytosis of unknown etiology. Assessment: Patient recalled that a total of 2 hours of sleep is associated with O2sat below 73%. He is to get sleep study next week. I explained that the chronic hypoxia may be responsible for his erythrocytosis. Hopefully, with treatment, his erythrocytosis will improve. Plan: 1. Sleep study as scheduled 2. F/u with Dr. Webster 3. RTC in 3 months, repeat CBC (2) Colon cancer Overview: The patient is a 69-year-old male with history of stage III colon cancer status right colectomy, and adjuvant chemotherapy FOLFOX completed 2013. He has been on active surveillance for the past almost 5 years. No evidence of disease recurrence or metastasis. Assessment: There is no evidence to suggest disease recurrence or metastasis. I talked with the patient I will continue current active surveillance. Plan Active surveillance.
[2020-02-28 07:45] LABS: Add Manual Diff / Slide Review NO; Basophils Absolute Auto 100 /uL (0-100); Basophils Percent Auto 1.1 % (0-2); Eosinophils Absolute Auto 200 /uL (0-450); Eosinophils Percent Auto 3.1 % (2-4); Hematocrit 51.8 % (41-53); Lymphocytes Absolute Auto 2400 /uL (1100-4500); Lymphocytes Percent Auto 39.3 % (25-40); Mean Corpuscular HGB Conc 32.8 % (30-36); Mean Corpuscular Hemoglobin 29.6 PG (26-34); Mean Corpuscular Volume 90.4 fL (80-100); Monocytes Absolute Auto 600 /uL (0-900); Monocytes Percent Auto 10.1 % (3-14); Neutrophils Absolute Auto 2800 /uL (1500-7000); Neutrophils Percent Auto 46.4 % (50-75); Platelet Count 149 X10^3/uL (150-400); Red Blood Cell Count 5.73 X10^6/uL (4.5-5.9); Red Cell Distribution Width 14.8 % (11.6-14.8); White Blood Cell Count 6.1 X10^3/uL (4.5-11.0)
[2020-02-28 08:43] LABS: Alanine Aminotransferase 19 IU/L (<50); Albumin Globulin Ratio 1.6 (1.0-2.8); Alkaline Phosphatase 44 U/L (38-126); Aspartate Aminotransferase 33 IU/L (17-59); BUN Creatinine Ratio 19.8 (6-22); Bilirubin Total 1.6 mg/dL (0.2-1.3); Blood Urea Nitrogen 18 mg/dL (9-20); Calcium 9.6 mg/dL (8.4-10.2); Carbon Dioxide 25 mmol/L (22-32); Chloride 103 mmol/L (98-107); Cholesterol 181 mg/dL (140-199); Estimated Glomerular Filt Rate > 60.0 mL/min (>60); Globulin 2.5 g/dL (1.7-4.1); Glucose 104 mg/dL (80-110); HDL Cholesterol 61 mg/dL (40-60); HEMOLYSIS < 15 (0-50); LDL Cholesterol Calculated 78 mg/dL (<100); Potassium 4.2 mmol/L (3.4-5.1); Sodium 136 mmol/L (137-145); Total Protein 6.5 g/dL (6.3-8.2); Triglycerides 208 mg/dL (35-150)
[2020-03-10 11:06] VITALS: BP 134/88; PULSE 70; RESP 18; TEMP 36.6; O2SAT 96
--- NOTE | 2020-03-10 11:29 | P.PNONC_ITS ---
PN -Subjective Interval history: ID/CC: 69 year old with colon cancer and erythrocytosis History of Present Illness: The patient is a 69 year old male with history of stage III colon cancer status post right hemicolectomy in with finding of an adenocarcinoma and a villous adenoma and metastatic carcinoma in 1 of 14 nodes. He underwent adjuvant adjuvant chemotherapy with FOLFOX. Treated [facility] near [place]. He completed a full 12 cycles; however oxaliplatin was stopped at cycle 9 due to neuropathy. Subsequently he has had continued tingling in his feet and hand pain related to the neuropathy. He is now on active surveillance. His next C-scope is due next May 2020. He has been getting CT scan once a year Interim Events Since his previous visit, patient said that he underwent respiratory sleep apnea test. He was diagnosed with mild sleep apnea. However he said he was not able to tolerate the CPAP. Therefore he has not used it at all. During the summer, because of the COVID-19, he has been staying at home and trying to remodel his garden. He has been working very hard. He does not have any nausea or vomiting, denies shortness of breath or chest pain, no diarrhea no constipation. Overall he has been doing well. He said he is due for a surveillance colonoscopy in May but has not received any reminder yet - Additional ROS All systems PM: reviewed and no additional remarkable complaints except as stated Home Medications and Allergies Home Medications Medication Instructions Recorded Confirmed Type allopurinol 300 mg PO QDAY #0 03/02/17 03/10/20 History colchicine [Mitigare] 0.6 mg PO PRN PRN #0 03/02/17 03/10/20 History lisinopril 2.5 mg PO QDAY #0 03/02/17 03/10/20 History rosuvastatin [Crestor] 10 mg PO QDAY #0 03/02/17 03/10/20 History Allergies Allergy/AdvReac Type Severity Reaction Status Date / Time No Known Allergies Allergy Uncoded 02/05/20 12:49 Exam Vital signs: Vital Signs Temp Pulse Resp BP Pulse Ox 03/10/20 11:06 98 F 70 18 134/88 96 Intake and Output 03/09/20 03/10/20 03/10/20 23:59 07:59 15:59 Other: Weight 95.5 kg Patient Weight 03/10/20 23:59 Weight 95.5 kg Narrative: ECOG 1 Gen: Well developed, obese, NAD, pleasant and cooperative. HEENT: NCAT, EOMI, PERRLA, anicteric sclera. Neck: Supple, No palpable thyromegaly or lymphadenopathy. Respiratory: CTAB, no wheezes audible. No JVD Cardiovascular: RRR, S1 and S2 normal, no M/G/R. Abdomen: Soft, NTND, BS normal, no palpable organomegaly Extremities: No LE pitting edema. Lymphatic: no palpable lymph nodes in the neck, axillae, or groins. Neurological: AOx3, CN II-XII grossly intact. No focal motor or sensory deficit. Psychiatric: normal affect; no depression, no anxiety. Results - Labs Laboratory Last Values WBC 6.1 X10^3/uL (4.5-11.0) 02/28/20 07:36 RBC 5.73 X10^6/uL (4.5-5.9) 02/28/20 07:36 Hgb 17.0 g/dL (13.5-17.5) 02/28/20 07:36 Hct 51.8 % (41-53) 02/28/20 07:36 MCV 90.4 fL (80-100) 02/28/20 07:36 MCH 29.6 PG (26-34) 02/28/20 07:36 MCHC 32.8 % (30-36) 02/28/20 07:36 RDW 14.8 % (11.6-14.8) 02/28/20 07:36 Plt Count 149 X10^3/uL (150-400) L 02/28/20 07:36 Neut % (Auto) 46.4 % (50-75) L 02/28/20 07:36 Lymph % (Auto) 39.3 % (25-40) 02/28/20 07:36 Cooke % (Auto) 10.1 % (3-14) 02/28/20 07:36 Eos % (Auto) 3.1 % (2-4) 02/28/20 07:36 Baso % (Auto) 1.1 % (0-2) 02/28/20 07:36 Neut # (Auto) 2800 /uL (2764-7562) 02/28/20 07:36 Lymph # (Auto) 2400 /uL (1137-0068) 02/28/20 07:36 Cooke # (Auto) 600 /uL (0-900) 02/28/20 07:36 Eos # (Auto) 200 /uL (0-450) 02/28/20 07:36 Baso # (Auto) 100 /uL (0-100) 02/28/20 07:36 Sodium 136 mmol/L (137-145) L 02/28/20 07:36 Potassium 4.2 mmol/L (3.4-5.1) 02/28/20 07:36 Chloride 103 mmol/L (98-107) 02/28/20 07:36 Carbon Dioxide 25 mmol/L (22-32) 02/28/20 07:36 BUN 18 mg/dL (9-20) 02/28/20 07:36 Creatinine 0.91 mg/dL (0.66-1.25) 02/28/20 07:36 Estimated GFR > 60.0 mL/min (>60) 02/28/20 07:36 BUN/Creatinine Ratio 19.8 (6-22) 02/28/20 07:36 Glucose 104 mg/dL (80-110) 02/28/20 07:36 Calcium 9.6 mg/dL (8.4-10.2) 02/28/20 07:36 Total Bilirubin 1.6 mg/dL (0.2-1.3) H 02/28/20 07:36 AST 33 IU/L (17-59) 02/28/20 07:36 ALT 19 IU/L (<50) 02/28/20 07:36 Alkaline Phosphatase 44 U/L (38-126) 02/28/20 07:36 Total Protein 6.5 g/dL (6.3-8.2) 02/28/20 07:36 Albumin 4.0 g/dL (3.5-5.0) 02/28/20 07:36 Globulin 2.5 g/dL (1.7-4.1) 02/28/20 07:36 Albumin/Globulin Ratio 1.6 (1.0-2.8) 02/28/20 07:36 Triglycerides 208 mg/dL (35-150) H 02/28/20 07:36 Cholesterol 181 mg/dL (140-199) 02/28/20 07:36 LDL Cholesterol, Calc 78 mg/dL (<100) 02/28/20 07:36 HDL Cholesterol 61 mg/dL (40-60) H 02/28/20 07:36 Assessment and Plan (1) Erythrocytosis Overview: 69 year old with erythrocytosis of unknown etiology. Assessment: I reviewed the lab results from 02/28/2020. It showed that the H/H have improved compared to his previous visit. I think that his summer gardening work may have helped to improve his pulmonary function. Plan: RTC in 6 months, CBC, CMP. (2) Colon cancer Overview: The patient is a 69-year-old male with history of stage III colon cancer status right colectomy, and adjuvant chemotherapy FOLFOX completed 2013. He has been on active surveillance since. Assessment: His previous colonoscopy was 3 years ago. At that time, the surgeon recommended 3 year follow-up surveillance colonoscopy. Plan Referral to surgery for surveillance colonscopy RTC in 6 months, CBC, CMP, CEA
--- NOTE | 2020-09-08 12:13 | ONC.PN ---
PN -Subjective Interval history: ID/CC: 70 year old with colon cancer and erythrocytosis History of Present Illness: The patient is a 70 year old male with history of stage III colon cancer status post right hemicolectomy in 05/2013 with finding of an adenocarcinoma and a villous adenoma and metastatic carcinoma in 1 of 14 nodes. He underwent adjuvant chemotherapy with FOLFOX. Treated at [facility] near [place]. He completed a full 12 cycles; however oxaliplatin was stopped at cycle 9 due to neuropathy. Subsequently he has had continued tingling in his feet and hand pain related to the neuropathy. He is now on active surveillance. Interim Events He presents here today for scheduled follow-up visit. Clinically he reports no new signs or symptoms. On 06/28/2020, patient underwent repeat colonoscopy. Polyps were removed and the final pathology showed benign lymphoid aggregate of the polyp 5 from a 90 cm, and from 50 cm. - Additional ROS All systems PM: reviewed and no additional remarkable complaints except as stated Home Medications and Allergies Home Medications Medication Instructions Recorded Confirmed Type allopurinol 300 mg PO QDAY #0 03/02/17 05/29/20 History colchicine [Mitigare] 0.6 mg PO PRN PRN #0 03/02/17 05/29/20 History rosuvastatin [Crestor] 10 mg PO QDAY #0 03/02/17 05/29/20 History losartan 25 mg PO Q OTHER DAY 05/29/20 05/29/20 History Allergies Allergy/AdvReac Type Severity Reaction Status Date / Time No Known Drug Allergies Allergy Verified 05/29/20 07:41 Exam Vital signs: 09/08/20 12:24 Last Vital Signs Temp 98 F 03/10/20 11:06 Pulse 70 03/10/20 11:06 Resp 18 03/10/20 11:06 BP 134/88 03/10/20 11:06 Pulse Ox 96 03/10/20 11:06 Narrative: ECOG 1 Gen: Well developed, obese, NAD, pleasant and cooperative. HEENT: NCAT, EOMI, PERRLA, anicteric sclera. Neck: Supple, No palpable thyromegaly or lymphadenopathy. Respiratory: CTAB, no wheezes audible. No JVD Cardiovascular: RRR, S1 and S2 normal, no M/G/R. Abdomen: Soft, NTND, BS normal, no palpable organomegaly Extremities: No LE pitting edema. Lymphatic: no palpable lymph nodes in the neck, axillae, or groins. Neurological: AOx3, CN II-XII grossly intact. No focal motor or sensory deficit. Psychiatric: normal affect; no depression, no anxiety. Results - Labs Labs from 09/01/2020 WBC 7.3, hemoglobin 18.7, hematocrit 55.2, MCV 89, platelets 168 Glucose 94, BUN 15, creatinine 0.95, sodium 138, potassium 4.7, chloride 100, calcium 9.9, total protein 6.7, albumin 4.4, globulin 2.3, total bilirubin 1.0, alk-phos 54, AST 25, ALT 20. CEA 2.9. Assessment and Plan (1) Erythrocytosis Overview: 70 year old with erythrocytosis of unknown etiology. Assessment: I reviewed the lab results from 09/01/2020 The hemoglobin and hematocrit levels are increased compared to about 6 months ago. Clinically patient denies any signs or symptoms. I talked with the patient that I would recommend repeat the CBC in 3 months. If the H/H remain elevated, I would recommend proceed with polycythemia vera work-up. Plan: RTC in 3 months, CBC. (2) Colon cancer Overview: The patient is a 69-year-old male with history of stage III colon cancer status right colectomy, and adjuvant chemotherapy FOLFOX completed 2013. He has been on active surveillance since. Assessment: Surveillance colonoscopy from 05/29/2020 showed no evidence of disease recurrence or metastasis. And biopsy from 2 polyps were benign. The tumor marker CEA is also within the normal range. Plan Continue current active surveillance.
--- NOTE | 2020-09-08 13:51 | ONC.SCHED ---
per Kj ([phone], no PA is required for visits, however, they are in need of a new referral from Latonia Espitia his PCP. I called [facility] and they will send over a new referral and get any new auth if necessary for today's visit
== END ==
PROVIDERS: Family Provider Internal Medicine; PCP Student in an Organized Health Care Education/Training Program; Referring Provider Student in an Organized Health Care Education/Training Program; Visit Provider Internal Medicine Hematology & Oncology
DX: D75.1 Secondary polycythemia (principal); Z08 Encounter for follow-up examination after completed treatment for malignant neoplasm; Z85.038 Personal history of other malignant neoplasm of large intestine; Z90.49 Acquired absence of other specified parts of digestive tract
CPT/HCPCS: 36415; 80053; 80061; 85025; 99214

== ENCOUNTER → 2020-11-24 18:44 | Outpatient (ROUT) | payer OTHER, SELFPAY ==
[2020-11-24 19:41] LABS: Cholesterol 220 mg/dL (140-199); HDL Cholesterol 60 mg/dL (40-60); LDL Cholesterol Calculated 122 mg/dL (<100); Triglycerides 189 mg/dL (35-150)
[2020-11-26 08:41] LABS: PSA Free % 35.5 % (.)
== END ==
PROVIDERS: PCP Student in an Organized Health Care Education/Training Program; Visit Provider Student in an Organized Health Care Education/Training Program
DX: N40.1 Benign prostatic hyperplasia with lower urinary tract symptoms (principal); E78.00 Pure hypercholesterolemia, unspecified
CPT/HCPCS: 80061; 84153; 84154

== ENCOUNTER → 2022-08-12 10:12 | Outpatient (CLI) | payer OTHER, SELFPAY ==
[2022-08-12 12:45] LABS: Blood Urea Nitrogen 16 mg/dL (9-20); Calcium 9.5 mg/dL (8.4-10.2); Carbon Dioxide 27 mmol/L (22-32); Chloride 100 mmol/L (98-107); Estimated Glomerular Filt Rate > 60 mL/min (>60); Glucose 110 mg/dL (80-110); HEMOLYSIS < 15 (0-50); Potassium 4.2 mmol/L (3.4-5.1); Sodium 138 mmol/L (137-145)
== END ==
PROVIDERS: PCP Student in an Organized Health Care Education/Training Program; Referring Provider Urology; Visit Provider Urology
DX: R31.21 Asymptomatic microscopic hematuria (principal); R97.20 Elevated prostate specific antigen [PSA]; N40.0 Benign prostatic hyperplasia without lower urinary tract symptoms; R39.9 Unspecified symptoms and signs involving the genitourinary system; R33.9 Retention of urine, unspecified; Z87.442 Personal history of urinary calculi; Z87.891 Personal history of nicotine dependence; Z77.22 Contact with and (suspected) exposure to environmental tobacco smoke (acute) (chronic)
CPT/HCPCS: 36415; 51798; 80048; 81002; 99214

== ENCOUNTER → 2022-08-13 10:04 | Outpatient (CLI) | payer OTHER, SELFPAY ==
--- NOTE | 2022-08-13 | DI.US.S_ITS ---
PROCEDURE: US ABD AORTA ANEURYSM SCREEN INDICATIONS: ENCOUNTER SCREENING FOR ABDOMINAL AORTIC ANEURYSM TECHNIQUE: Real time scanning was performed of the aorta and iliac arteries, with image documentation. COMPARISON: None. FINDINGS: Aorta: Proximal aortic diameter measures 1.7 cm. Mid-aorta measures 1.6 cm. Distal aortic diameter is 1.5 cm. Iliac arteries: Right common iliac artery measures 1.0 cm. Left common iliac artery measures 0.9 cm. IMPRESSION: No abdominal aortic aneurysm. Dictated by: Justin Holman M.D. on 08/13/2022 at 10:38 Approved by: Justin Holman M.D. on 08/13/2022 at 10:38
== END ==
PROVIDERS: PCP Student in an Organized Health Care Education/Training Program; Referring Provider Student in an Organized Health Care Education/Training Program; Visit Provider Student in an Organized Health Care Education/Training Program
DX: Z13.6 Encounter for screening for cardiovascular disorders (principal)
CPT/HCPCS: 76706

== ENCOUNTER → 2022-08-27 07:58 | Outpatient (CLI) | payer OTHER, SELFPAY ==
--- NOTE | 2022-08-27 07:59 | DI.CT.S_ITS ---
PROCEDURE: CT ABDOMEN PELVIS WO/W CON INDICATIONS: Asymptomatic microscopic hematuria, history of kidney stones TECHNIQUE: After the administration of oral contrast, 5 mm thick sections acquired from the diaphragms to the iliac crests. After the administration of intravenous contrast, 5 mm thick sections acquired from the diaphragms to the symphysis. 5 mm thick coronal and sagittal reformats were acquired. For radiation dose reduction, the following was used: automated exposure control, adjustment of mA and/or kV according to patient size. COMPARISON: None. FINDINGS: Image quality: Excellent. Lung bases: Lung bases are clear. Heart size is normal. Solid organs: Liver: The liver has no mass or intrahepatic biliary ductal dilatation. Biliary: The gallbladder has no gallstones, pericholecystic fluid, gallbladder wall thickening, or surrounding inflammatory change. Pancreas: The pancreas has no mass or ductal dilatation. There is no surrounding inflammation. Spleen: Normal size. There are no masses. Adrenals: No hypertrophy or nodules. Kidneys: No obstructive calculus or hydronephrosis. No solid mass. No cystic mass. Peritoneum and bowel: The distal esophagus and stomach are normal. The small bowel has a normal caliber and appearance. The terminal ileum is normal. The large bowel has changes of prior partial right colectomy. There is diverticulosis of the sigmoid colon without evidence of diverticulitis.. No free fluid or air. Nodes and vessels: No retroperitoneal or mesenteric adenopathy by size criteria. The aorta has atherosclerosis with no aneurysmal dilatation. Miscellaneous: Fat containing inguinal hernias bilaterally. PELVIS: Genitourinary: The bladder has no wall thickening or mass. No bladder calcifications. The prostate measures 5.8 x 4.9 cm. Bones: Degenerative changes with no focal abnormality. No vertebral body compression fractures. IMPRESSION: 1. No acute abnormality of the abdomen or pelvis. 2. Enlarged prostate. 3. Diverticulosis without evidence of diverticulitis. 4. Changes of prior right colectomy. 5. No evidence of metastatic disease to the abdomen or pelvis. 6. Fat containing inguinal hernias. Dictated by: Corey Berman M.D. on 08/27/2022 at 9:40 Approved by: Corey Berman M.D. on 08/27/2022 at 9:47
--- NOTE | 2022-08-27 07:59 | DI.MRI.S_ITS ---
PROCEDURE: MR PELVIC PROSTATE PROTOCOL INDICATIONS: Asymptomatic microscopic hematuria, history of kidney stones TECHNIQUE: Coronal HASTE, axial T1 FSE with fat saturation, 3-plane nonbreath-hold T2 FSE. After the administration of contrast, dynamic axial, delayed axial and coronal VIBE or 2-D FLASH with fat saturation through the pelvis. Optional diffusion weighted imaging and ADC may be performed. COMPARISON: [facility], CT, CT ABDOMEN PELVIS WO/W CON, 08/27/2022, 9:21. FINDINGS: Image quality: Diffusion weighted and dynamic contrast enhanced images are diagnostic. Prostate: Gland size is 5.0 x 3.9 x 5.5 cm; ellipsoid gland volume is 56 mL. Lesion #1: Size: 0.3 cm Location: Right posterior medial peripheral zone, gland apex (for example axial ADC series 24, image 17). T2 signal: Circumscribed hypointense DWI/ADC signal: Hypointense on ADC images without definite/substantial corresponding DWI hyperintensity. DCE: Positive NICHELLE: Absent Seminal vesicle invasion: Absent PI-RADS: T2 signal - 4; ADC - 3; DCE - positive; Overall score: PI-RADS 4. Genitourinary system: Bladder wall thickness is normal. Distal ureters are non distended. Bowel and peritoneum: No pathologic free pelvic fluid. Inferior colon and small bowel loops are normal in caliber. Nodes and vessels: No pelvic or inguinal adenopathy by size criteria. Iliac vessels are normal in caliber. Bones: Marrow demonstrates unremarkable overall signal, without lesions to suggest metastases. IMPRESSION: 1. A 0.3 cm lesion at the right peripheral zone, gland apex, is consistent with PI-RADS category 4. 2. No suspicious lymph nodes identified in the imaged pelvis. Dictated by: Reginaldo Wallace M.D. on 08/27/2022 at 10:15 Approved by: Reginaldo Wallace M.D. on 08/27/2022 at 10:38
== END ==
PROVIDERS: PCP Student in an Organized Health Care Education/Training Program; Referring Provider Urology; Visit Provider Urology
DX: N40.0 Benign prostatic hyperplasia without lower urinary tract symptoms (principal); N42.9 Disorder of prostate, unspecified; K57.30 Diverticulosis of large intestine without perforation or abscess without bleeding; K40.20 Bilateral inguinal hernia, without obstruction or gangrene, not specified as recurrent; R97.20 Elevated prostate specific antigen [PSA]; R31.21 Asymptomatic microscopic hematuria; Z87.442 Personal history of urinary calculi; Z77.22 Contact with and (suspected) exposure to environmental tobacco smoke (acute) (chronic); Z90.49 Acquired absence of other specified parts of digestive tract
CPT/HCPCS: 72197; 74178; Q9967

== ENCOUNTER → 2023-01-26 07:57 | Outpatient (CLI) | payer OTHER, SELFPAY ==
[2023-01-28 06:36] LABS: PSA Free % 40.6 % (.); PSA, Total 1.8 ng/mL (0.0-4.0)
== END ==
PROVIDERS: PCP Student in an Organized Health Care Education/Training Program; Referring Provider Urology; Visit Provider Urology
DX: R97.20 Elevated prostate specific antigen [PSA] (principal)
CPT/HCPCS: 36415; 84153; 84154

== ENCOUNTER → 2023-03-25 15:37 | Outpatient (CLI) | payer OTHER, SELFPAY ==
--- NOTE | 2023-03-25 15:39 | DI.US.S_ITS ---
PROCEDURE: US CAROTID DOPPLER BI INDICATIONS: CAROTID STENOSIS ON DENTAL IMAGING TECHNIQUE: Color and pulse Doppler interrogation was performed of both carotid systems, with image documentation and velocity measurements. COMPARISON: None. FINDINGS: Stenosis calculations are based on SRU (Society of Radiologists in Ultrasound) criteria. Right side: Brachial blood pressure: 137/89 mm Hg. Common carotid artery peak systolic velocity: 99 cm/sec. Internal carotid artery peak systolic velocity: 64 cm/sec. Internal carotid artery end diastolic velocity: 21 cm/sec. External carotid artery peak systolic velocity: 111 cm/sec. ICA/CCA peak systolic ratio: 0.6 . Burrows scale imaging description: Trace atheromatous plaque Percent internal carotid artery stenosis: Less than 50%. Vertebral artery: Flow direction is antegrade. Left side: Brachial blood pressure: 130/84 mm Hg. Common carotid artery peak systolic velocity: 88 cm/sec. Internal carotid artery peak systolic velocity: 68 cm/sec. Internal carotid artery end diastolic velocity: 25 cm/sec. External carotid artery peak systolic velocity: 152 cm/sec. ICA/CCA peak systolic ratio: 0.8 . Burrows scale imaging description: Mild atheromatous plaque Percent internal carotid artery stenosis: Less than 50% stenosis. Vertebral artery: Flow direction is antegrade. Miscellaneous: There is an incidentally noted heterogeneous appearance throughout the thyroid gland. IMPRESSION: 1. Less than 50% stenosis of the bilateral carotid arteries. 2. Incidentally noted heterogeneous appearance of the thyroid. If further characterization is warranted, thyroid ultrasound could be used. Dictated by: Bridget Barber M.D. on 03/25/2023 at 17:10 Approved by: Bridget Barber M.D. on 03/25/2023 at 17:12
== END ==
PROVIDERS: PCP Student in an Organized Health Care Education/Training Program; Referring Provider Student in an Organized Health Care Education/Training Program; Visit Provider Student in an Organized Health Care Education/Training Program
DX: I65.23 Occlusion and stenosis of bilateral carotid arteries (principal)
CPT/HCPCS: 93880

== ENCOUNTER → 2023-04-12 09:06 | Outpatient (CLI) | payer OTHER, SELFPAY ==
--- NOTE | 2023-04-12 | DI.US.S_ITS ---
PROCEDURE: US THYROID INDICATIONS: HETEROGENOUS THYROID SEEN ON CAROTID ULTRASOUND TECHNIQUE: Real-time scanning was performed of the thyroid gland, with image documentation. COMPARISON: [facility], US, US CAROTID DOPPLER , 03/25/2023, 16:03. FINDINGS: Right: Thyroid lobe measures 3.2 x 1.6 x 1.8 cm, and is heterogeneous in echotexture. Left: Thyroid lobe measures 3.1 x 0.8 x 1.7 cm, and is heterogeneous in echotexture. Isthmus: 0.6 cm thick. No suspicious thyroid nodule. No cervical lymphadenopathy. IMPRESSION: Heterogeneous and mildly small appearance of the thyroid is nonspecific and may be related to age or the sequela of chronic thyroiditis. No suspicious thyroid nodule. Approved by: Reginaldo Nicolas M.D. on 04/12/2023 at 11:14
== END ==
PROVIDERS: PCP Student in an Organized Health Care Education/Training Program; Referring Provider Student in an Organized Health Care Education/Training Program; Visit Provider Student in an Organized Health Care Education/Training Program
DX: R93.89 Abnormal findings on diagnostic imaging of other specified body structures (principal)
CPT/HCPCS: 76536

== ENCOUNTER → 2023-05-04 08:31 | Outpatient (CLI) | payer OTHER, SELFPAY | PROVIDERS: PCP Student in an Organized Health Care Education/Training Program; Referring Provider Urology; Visit Provider Urology | DX: R97.20 Elevated prostate specific antigen [PSA] (principal) | CPT/HCPCS: 36415; 84153; 84154 ==

== ENCOUNTER 2023-05-31 07:12 | Day surgery (SDC) | payer OTHER, SELFPAY ==
--- NOTE | 2023-05-31 | PATH_ITS ---
[facility] Accession Number: [id number] No. of containers..01 Tissue . 01 Material submitted: . colon - TRANSVERSE POLYP . 01 Diagnosis: COLON, TRANSVERSE, POLYP BIOPSY: - BENIGN POLYPOID COLONIC MUCOSA WITH BENIGN REACTIVE LYMPHOID AGGREGATE. - NEGATIVE FOR DYSPLASIA DESPITE MULTIPLE LEVELS ASSESSMENT. TXN 06/09/2023 1055 Local . 01 Electronically signed: . Tascot Mckeon MD, Pathologist NPI- [id number] . 01 Gross description: . TRANSVERSE POLYP: Received in formalin is 1 fragment(s) of stevenson, soft tissue measuring 0.3 x 0.3 x 0.2 cm submitted entirely in 1 cassette(s) /ASHLEY 06/01/2023 1844 Local . 01 Pathologist provided ICD-10: Z12.11 . 01 CPT . 296076 Specimen Comment: A courtesy copy of this report has been sent to [phone] Performed at: 01 [facility] [address] [place] [address] [address] [facility], [place], [place] [id number] MD Cory Ogden MD Phone: [phone]
[2023-05-31 07:29] VITALS: BMI 37.2
[2023-05-31 07:38] VITALS: BP 154/84; PULSE 85; RESP 18; TEMP 36.3; O2SAT 94
[2023-05-31] MEDS: LACTATED RINGERS 1,000 ML 42 ML IV (07:51)
--- NOTE | 2023-05-31 08:48 | P.HP_ITS ---
History of Present Illness History of Present Illness Date Patient Seen: 05/31/23 Time Patient Seen: 08:48 Chief complaint: Colonoscopy Narrative: 72-year-old man history of colon cancer status post right hemicolectomy 2016. Last colonoscopy 2019 with benign polyps. No abdominal concerns today including but not limited to abdominal pain, unintentional weight loss, blood per rectum anorexia. [facility] Medical History History of tobacco use Incomplete emptying of bladder Lower urinary tract symptoms Elevated PSA Secondhand smoke exposure History of kidney stones Asymptomatic microscopic hematuria History of kidney stones History of high blood pressure Hx of gout History of colon cancer Enlarged prostate PAUL (obstructive sleep apnea) Surgical History Status post right hemicolectomy Social History marital status: number of children: 1 household members: spouse Smoking Status: Former smoker alcohol intake: current caffeine: No Type(s) of exercise: walking frequency: 3-4 times per week duration: > 90 minutes/day Meds Home Medications and Allergies Home Medications Medication Instructions Recorded Confirmed Type allopurinol 300 mg tablet 300 mg PO QDAY ##0 03/02/17 05/31/23 History colchicine (gout) 0.6 mg capsule 0.6 mg PO PRN PRN Gout ##0 03/02/17 05/31/23 History (Mitigare) rosuvastatin 10 mg tablet (Crestor) 10 mg PO QDAY ##0 03/02/17 05/31/23 History lisinopril 20 mg tablet 20 mg PO DAILY 02/02/23 05/31/23 History levothyroxine 25 mcg tablet 25 mcg PO DAILY 05/31/23 05/31/23 History Allergies Allergy/AdvReac Type Severity Reaction Status Date / Time No Known Drug Allergies Allergy Verified 05/31/23 07:25 Exam Vital Signs (past 8 hours): - 05/31/23 07:38 Temperature 97.3 F L Pulse Rate 85 Respiratory Rate 18 Blood Pressure 154/84 H Pulse Oximetry 94 Oxygen Delivery Method Room Air Oxygen Delivery Method Room Air Narrative Exam Narrative: General adult man alert oriented no acute distress Chest nonlabored respiration Extremities warm well perfused Assessment & Plan Assessment & Plan narrative: 72-year-old man status post right hemicolectomy 2017 for colon cancer here for screening colonoscopy. Technical details were discussed. Risks, benefits, alternatives explained. Risks including but not limited to myocardial infarction, aspiration, bleeding, pain, missed lesion, incomplete examination, need for further radiographic studies, colonic perforation, and need for major abdominal surgery were discussed. All questions were answered to their satisfaction, and they are in agreement with this plan.
[2023-05-31 09:12] VITALS: BP 99/70; PULSE 82; RESP 14; TEMP 36.6; O2SAT 93
--- NOTE | 2023-05-31 09:14 | P.OP.COLON_ITS ---
Operative Date/Time/Diagnoses Date of procedure: 05/31/23 Time of procedure: 09:14 Pre-op diagnosis: History of colon cancer status post right hemicolectomy 2017 Post-op diagnosis: other (Colonic polyp x1) Procedure & Clinicians Study performed: Colonoscopy and polypectomy Same procedure as scheduled: Yes Indications: History of colon cancer status post right hemicolectomy 2016 here for colonic screening Surgeon: Genaro Marmolejo Procedure Notes Procedure in detail: The history and physical was performed/updated and the patient is ASA class is 2. The procedure was discussed in detail with the patient. Potential risks complications including infection, bleeding, missed diagnosis, perforation, need for surgery, and were explained. Their questions were answered and informed consent was obtained. Patient was brought to the procedure room and placed standard monitoring equipment. The patient's vital signs were monitored continuously throughout the entire procedure. Prior to starting time-out was performed. The patient was placed in the left lateral recumbent position. Procedural sedation was administered by anesthesia. Examination began with a thorough inspection of the perianal area there was no evidence of fissures, fistulae, external hemorrhoids or cutaneous malignancy. The colonoscopy scope was then placed into the anal canal and was advanced forward. We reached the ileocolonic anastomosis which was normal in its appearance. The scope was then slowly withdrawn. The scope was retroflexed within the rectum The patient tolerated the procedure well. They will be discharged once criteria are met. The prep was of good/excellent quality. The withdrawl time was 7 minutes. FINDINGS * Normal ileal colonic anastomosis * Transverse colon 1 polyp approximally 3 mm removed with biopsy forceps * Moderate diverticulosis pancolonic Specimen(s): other (Transverse colon polyp) Impression: Colonic polyp x1 Post-procedure Plan for aftercare: Follow-up is dependent on pathology findings likely 3 years Disposition: same day surgery
[2023-05-31 09:16] VITALS: BP 100/70; PULSE 80; RESP 20; O2SAT 94
[2023-05-31 09:21] VITALS: BP 113/77; PULSE 73; RESP 17; O2SAT 94
[2023-05-31 09:26] VITALS: BP 121/80; PULSE 74; RESP 19; O2SAT 94
[2023-05-31 09:32] VITALS: BP 134/83; PULSE 71; RESP 17; TEMP 36.7; O2SAT 95
== END 2023-05-31 09:42 | disposition home or self-care (01) ==
PROVIDERS: PCP Student in an Organized Health Care Education/Training Program; Referring Provider Surgery; Visit Provider Surgery
PROC: 0DJD8ZZ Inspection of Lower Intestinal Tract, Via Natural or Artificial Opening Endoscopic (ICD-10-PCS; CPT 45378; principal; 2023-05-31 08:45)
DX: Z12.11 Encounter for screening for malignant neoplasm of colon (principal); Z85.038 Personal history of other malignant neoplasm of large intestine; Z90.49 Acquired absence of other specified parts of digestive tract; K57.30 Diverticulosis of large intestine without perforation or abscess without bleeding
CPT/HCPCS: G0105; J2704

== ENCOUNTER → 2023-08-09 07:52 | Outpatient (CLI) | payer OTHER, SELFPAY ==
[2023-08-09 09:54] LABS: TSH w/ Reflex to FT4 5.78 uIU/mL (0.47-4.68)
[2023-08-09 10:19] LABS: Free T4, Direct Thyroxine 1.05 ng/dL (0.78-2.19)
== END ==
PROVIDERS: PCP Family Medicine; Referring Provider Family Medicine; Visit Provider Family Medicine
DX: E03.9 Hypothyroidism, unspecified (principal)
CPT/HCPCS: 36415; 84439; 84443

== ENCOUNTER → 2023-08-17 09:28 | Outpatient (CLI) | payer OTHER, SELFPAY | LOC: CAR 09:29 | PROVIDERS: PCP Family Medicine; Referring Provider Family Medicine; Visit Provider Family Medicine | DX: I49.1 Atrial premature depolarization (principal) | CPT/HCPCS: 93242 ==

== ENCOUNTER → 2023-09-29 09:09 | Outpatient (CLI) | payer OTHER, SELFPAY ==
[2023-09-29 11:32] LABS: Thyroid Stimulating Hormone 2.98 uIU/mL (0.47-4.68)
== END ==
PROVIDERS: PCP Family Medicine; Referring Provider Family Medicine; Visit Provider Family Medicine
DX: E03.9 Hypothyroidism, unspecified (principal)
CPT/HCPCS: 36415; 84443

== ENCOUNTER → 2023-10-12 06:34 | Outpatient (CLI) | payer OTHER, SELFPAY ==
--- NOTE | 2023-10-12 06:35 | DI.ECHO.S_ITS ---
[facility] +---------+ : : [address] : : : : [id number] : : : : Phone: [phone] Echocardiogram Report + + :Name: RIVER ROBB Study Date: 10/12/2023 Height: 64 in : :[facility] ReadingLocation: Weight: 219 lb : : Gender: Male BSA: 2.0 m2 : :: 1950 Age: 73 yrs BP: 161/90 mmHg: :Reason For Study: LOOKING FOR STRUCTURAL CAUSE FOR PACS : :Ordering Physician: GENEVA, : :ATILIO Performed By: Mariely Lopez : :Referring: ATILIO BEAN : + + Interpretation Summary Technically difficult study. Patient declined use of Definity contrast. 1) Normal left ventricular thickness and size with low normal systolic function (EF 50-55%). 2) Normal right ventricular size and function. 3) No significant valvular abnormalities. 4) The ascending aorta is mildly enlarged at 4.2cm. 5) Compared to the Echo done 06/13/2019, mildly enlarged ascending aorta is present on this study. Procedure: A two-dimensional transthoracic echocardiogram with color flow and Doppler was performed. The study quality was technically difficult. Comparison is made with the echocardiogram of 06/13/2019. The patient was in sinus rhythm with heart rates between 69-82 bpm during the exam. The patient had occasional PACs during the exam. Left Ventricle: The left ventricle is normal in size and wall thickness. The ejection fraction is estimated to be 50-55%. There are no obvious focal wall motion abnormalities noted but poor endocardial definition reduces the sensitivity for the detection of such. Right Ventricle: The right ventricle is normal size. The right ventricular systolic function is normal. Atria: The left atrial size is normal. Right atrial size is normal. There is no Doppler evidence for an interatrial shunt. Mitral Valve: The mitral valve leaflets are slightly calcified. There is no mitral regurgitation noted. Aortic Valve: The aortic valve is mildly calcified. The aortic valve is trileaflet. There is no aortic valve stenosis. There is trace aortic regurgitation. Tricuspid Valve: The tricuspid valve is not well visualized, but is grossly normal. No tricuspid regurgitation. Pulmonary artery pressures cannot be estimated because of the lack of a measurable TR jet velocity. Pulmonic Valve: The pulmonic valve leaflets are thin and pliable; valve motion is normal. There is trace pulmonic regurgitation. Great Vessels: The aortic root is borderline dilated. The ascending aorta is mildly enlarged. The IVC is of normal diameter and collapses greater than 50% with a sniff. This suggests a low right atrial pressure of 3 mm Hg. Pericardium/ Pleura There is no pericardial effusion. There is no pleural effusion. MMode/2D Measurements & Calculations LVIDd: 3.9 cm LVOT diam: 2.0 cm LVIDs: 2.9 cm Ao root diam: 4.0 cm FS: 24.1 % asc Aorta Diam: 4.2 cm IVSd: 1.0 cm Ao Arch Diam (Prox Trans): 3.4 cm LVPWd: 0.81 cm LV [place]. diameter/BSA (cm/m^2): 1.9 LV sys. diameter/BSA (cm/m^2): 1.4 LA A2 area: 17.5 cm2 RA long axis: 4.7 cm LA A4 area: 16.1 cm2 RA area: 13.3 cm2 LA length (vol): 5.4 cm RA vol: 32.0 ml LA vol: 44.7 ml RA : 15.7 ml/m2 LA vol index: 22.0 ml/m2 IVC diam: 1.4 cm RVD1 (basal): 4.2 cm TAPSE: 2.1 cm Doppler Measurements & Calculations Ao V2 max: 143.5 cm/sec LVOT Max Francisco: 108.8 cm/sec Ao V2 mean: 104.2 cm/sec LV V1 max P.7 mmHg Ao max P.3 mmHg LV V1 VTI: 21.1 cm Ao mean P.8 mmHg ABDOULAYE(I,D): 2.3 cm2 Ao V2 VTI: 29.1 cm ABDOULAYE(V,D): 2.4 cm2 sev ratio: 0.72 ABDOULAYE indexed to BSA (cm^2/m^2): 1.1 MV E max francisco: 79.1 cm/sec PA V2 max: 92.5 cm/sec MV A max francisco: 90.7 cm/sec PA V2 mean: 64.9 cm/sec MV E/A: 0.87 PA mean P.9 mmHg Med Peak E' Francisco: 6.3 cm/sec PA pr(Accel): 48.2 mmHg E/E' med: 12.6 Lat Peak E' Francisco: 8.1 cm/sec E/E' lat: 9.8 E/e' average: 11.2 MV dec time: 0.30 sec SV(LVOT): 67.5 ml Reading Physician:10:39 AM
== END ==
LOC: ECHO 06:35
PROVIDERS: PCP Family Medicine; Referring Provider Family Medicine; Visit Provider Family Medicine
DX: I49.1 Atrial premature depolarization (principal); I77.89 Other specified disorders of arteries and arterioles
CPT/HCPCS: 93306

== ENCOUNTER → 2023-11-09 07:42 | Outpatient (CLI) | payer OTHER, SELFPAY ==
[2023-11-09 09:12] LABS: Prostate Specific Antigen 2.35 ng/mL (0.10-4.00)
== END ==
PROVIDERS: PCP Family Medicine; Referring Provider Urology; Visit Provider Urology
DX: R97.20 Elevated prostate specific antigen [PSA] (principal)
CPT/HCPCS: 36415; 84153

== ENCOUNTER → 2023-11-16 08:32 | Outpatient (CLI) | payer OTHER, SELFPAY ==
--- NOTE | 2023-11-16 08:34 | DI.RAD.S_ITS ---
PROCEDURE: XR KUB INDICATIONS: History of kidney stones TECHNIQUE: One view of the abdomen acquired. COMPARISON: [facility], CT, CT ABDOMEN PELVIS WO/W CON, 08/27/2022, 9:21. FINDINGS: Surgical changes and devices: Suture material in the right abdomen. Bowel: Bowel gas pattern is normal. Soft tissues: The previously seen calcifications at the renal calices are not appreciated. No suspicious abdominal calcifications. Visualized solid organ contours appear normal in size. Bones: No suspicious bony lesions. IMPRESSION: No kidney stones identified. No acute abnormality. If clinically indicated consider CT KUB for further evaluation. Dictated by: Dominik Charles M.D. on 11/16/2023 at 11:36 Approved by: Dominik Charles M.D. on 11/16/2023 at 11:40
== END ==
PROVIDERS: PCP Family Medicine; Referring Provider Urology; Visit Provider Urology
DX: Z09 Encounter for follow-up examination after completed treatment for conditions other than malignant neoplasm (principal); Z87.442 Personal history of urinary calculi
CPT/HCPCS: 74018

== ENCOUNTER → 2023-12-03 07:59 | Outpatient (CLI) | payer OTHER, SELFPAY ==
[2023-12-03 08:55] LABS: Add Manual Diff / Slide Review NO; Basophils Absolute Auto 100 /uL (0-100); Basophils Percent Auto 0.8 % (0-2); Eosinophils Absolute Auto 400 /uL (0-450); Eosinophils Percent Auto 5.3 % (2-4); Hemoglobin 17.3 g/dL (13.5-17.5); Lymphocytes Absolute Auto 2800 /uL (1100-4500); Lymphocytes Percent Auto 40.7 % (25-40); Mean Corpuscular HGB Conc 33.3 % (30-36); Mean Corpuscular Hemoglobin 30.4 PG (26-34); Mean Corpuscular Volume 91.4 fL (80-100); Monocytes Absolute Auto 700 /uL (0-900); Monocytes Percent Auto 10.5 % (3-14); Neutrophils Absolute Auto 3000 /uL (1500-7000); Neutrophils Percent Auto 42.7 % (50-75); Platelet Count 153 X10^3/uL (150-400); Red Blood Cell Count 5.69 X10^6/uL (4.5-5.9); White Blood Cell Count 6.9 X10^3/uL (4.5-11.0)
[2023-12-03 12:31] LABS: HEMOLYSIS < 15 (0-50); Potassium 4.4 mmol/L (3.4-5.1)
[2023-12-03 12:32] LABS: Alanine Aminotransferase 24 IU/L (<50); Albumin 4.2 g/dL (3.5-5.0); Albumin Globulin Ratio 1.7 (1.0-2.8); Alkaline Phosphatase 50 U/L (38-126); Aspartate Aminotransferase 37 IU/L (17-59); BUN Creatinine Ratio 17.4 (6-22); Bilirubin Total 1.2 mg/dL (0.2-1.3); Blood Urea Nitrogen 16 mg/dL (9-20); Calcium 9.2 mg/dL (8.4-10.2); Carbon Dioxide 26 mmol/L (22-32); Chloride 106 mmol/L (98-107); Cholesterol 173 mg/dL (140-199); Estimated Glomerular Filt Rate > 60 mL/min (>60); Globulin 2.5 g/dL (1.7-4.1); Glucose 100 mg/dL (80-110); HDL Cholesterol 53 mg/dL (40-60); LDL Cholesterol Calculated 86 mg/dL (<100); Sodium 137 mmol/L (137-145); Total Protein 6.7 g/dL (6.3-8.2); Triglycerides 169 mg/dL (35-150); Uric Acid 5.2 mg/dL (3.5-8.5)
[2023-12-03 12:57] LABS: Thyroid Stimulating Hormone 2.82 uIU/mL (0.47-4.68)
== END ==
PROVIDERS: PCP Family Medicine; Referring Provider Family Medicine; Visit Provider Family Medicine
DX: I71.21 Aneurysm of the ascending aorta, without rupture (principal); E03.9 Hypothyroidism, unspecified; I49.1 Atrial premature depolarization; C18.9 Malignant neoplasm of colon, unspecified; Z87.39 Personal history of other diseases of the musculoskeletal system and connective tissue; Z86.79 Personal history of other diseases of the circulatory system; Z79.899 Other long term (current) drug therapy
CPT/HCPCS: 36415; 80053; 80061; 84443; 84550; 85025

== ENCOUNTER 2024-01-03 08:29 | Day surgery (SDC) | payer OTHER, SELFPAY ==
[2023-12-06 09:19] VITALS: BMI 37.5
[2024-01-03] VITALS (16 sets, daily range): BP systolic 102–155; BP diastolic 68–95; PULSE 59–97; RESP 12–19; TEMP 35.5–37.3; O2SAT 90–96; BMI 37.2
[2024-01-03] MEDS: LACTATED RINGERS 1,000 ML 21 ML IV (09:07)
[2024-01-03] MEDS: ACETAMINOPHEN 325 MG TABLET 975 MG PO (09:08)
--- NOTE | 2024-01-03 09:41 | PM.PREOP ---
Pre-operative Note COVID-19 COVID-19 status: Not tested Interval Note History & Physical reviewed/Exam performed by Physician: Yes Changes to H&P: No
[2024-01-03] MEDS: CEFAZOLIN 2 GM/100 ML PREMIX 100 ML IV (10:14)
--- NOTE | 2024-01-03 10:53 | SUR.OPER ---
Lithotomy on padded OR bed, head on pillow, arms secured on padded arm boards at <90 degrees abduction. Legs secured in padded yellow fins stirrups.
--- NOTE | 2024-01-03 12:19 | PM.OP.1 ---
Procedure & Clinicians Procedure: 1. Aquablation water jet resection of prostate 2. Transrectal ultrasound of prostate 3. Transurethral resection of prostate bladder neck with cauterization. Same procedure as scheduled: Yes Indications: This 73-year-old male presented with profound complaints of benign prostatic hyperplasia with lower urinary tract symptoms. Workup revealed him to have a 62 g prostate and decreased average uroflow and found his urinary symptoms intolerable. He presents this time for Aquablation to treat his outlet obstructive and flow symptoms. Surgeon: Waqar Mccoy Click Yes if Unassisted: Yes Anesthesia Type: General Operative Notes Findings: Urethral meatus is normal urethra is normal along its length with normal mucosa sphincter as well coapted prostate shows marked bilobar obstruction with bulging into the bladder the ureteral orifices in normal position with clear efflux. At the end of the procedure they were intact and unaffected with clear efflux. The bladder exhibited severe trabeculation. At the end of the procedure there was at the bladder neck a flap of tissue posteriorly at the 6 o'clock position this was resected but left for for lack of a better expression of a small amount of undermining. Therefore his catheter will be left in for an extended time to allow this to heal. There were no other abnormalities prostatic fossa was widely patent at the end of the procedure the patient had a vigorous stream and hemostasis appeared to be good. A 24 Trinidadian 30 cc three-way hematuria catheter was left in place with 45 cc in the balloon and gentle traction. Closure Type: not applicable Specimen(s): none sent Prosthetic devices, grafts, tissues, transplants, or devices: Twenty-four Trinidadian 30 cc three-way hematuria catheter 45 cc in the balloon Estimated Blood Loss (mL): 80 Blood products transfused: none Procedure in detail: Procedure in detail: After informed consent was obtained, the patient was identified and brought to the operating room where he was placed in a supine position on the table. Once there anesthesia was induced and maintained. Ensuring an adequate level of anesthesia the patient was transitioned to the lithotomy position where he was prepped in a sterile fashion. Once prepped and after time-out, ensuring an adequate level of anesthesia, administration of antibiotics he had the ultrasound probe placed in his rectum in the following fashion 60 cc of ultrasound gel was instilled within the rectum in the ultrasound probe was inserted after having been attached to the truss stepper which was mounted to the truss articulating arm which he had been secured to the bed. The ultrasound probe was then aligned and confirmed to be centered in the prostate and aligned in both the transverse and in and longitudinal or sagittal views. At this point the patient was draped in a sterile fashion. Once draped. The 24 Trinidadian aqua beam handpiece was inserted through the urethra prostate and into the bladder under direct vision. Cystoscopy was performed. As the handpiece and scope were inserted the level of the external sphincter and veru were noted on the ultrasound and marked. They were marked particularly the veru by a calcification. The handpiece was inserted into the bladder and secured to the handpiece articulating arm which again had been attached to the bed. The alignment of the Aquablation handpiece and trust pleural were ensured making sure they were parallel and colinear. The aqua beam nozzle was confirmed to be centered and anterior of the bladder neck the cystoscope was then retracted to the level of the external sphincter and placed just proximal to the sphincter by both ultrasound and direct vision confirmation. The alignment of the truss probe and aqua beam handpiece was then reconfirmed. And anterior compression provided by the truss probe. There was also ensured that the hand piece was his anterior as possible. Then alignment of the water jet was noted such that the it was at the 3 and 9 o'clock position. The treatment plan was then performed 1st in the transverse view marking the rotational axis depth of penetration. With this performed in the sagittal view the profile of the aqua jet resection was confirmed and placed. With this done in the treatment contours adjusted and the start of resection bladder neck mid prostate and in resection at the level of the scope tip were all confirmed depth of penetration adjusted and with this all confirmed the aqua ablation treatment was started in the 1st pass completed. With this done it was determined that a 2nd pass would be beneficial and the contour adjusted and with this confirmed again a 2nd pass was completed. Once the Aquablation resection was completed the cystoscope was advanced to the tip of the hand piece and it was backed out under direct vision. The resectoscope was then inserted under direct vision. The urethral meatus did require dilation to accept the resectoscope it was dilated gently to 30 Trinidadian. Again there was this a flap of tissue which was resected which resulted in a minimal undermining in the midline at the 6 o'clock position. The points of bleeding were controlled around the bladder neck with the electrocautery. There appeared to be no tissue needing resected the ureteral orifices were once again identified and unaffected by the procedure. Again anteriorly at the 12 o'clock position both of the bladder neck and the level of the verumontanum there was a small amount of bleeding which was controlled with the electrocautery. Ellik evacuator was then used to evacuate all clot and the area of resection bladder neck were all reinspected points of bleeding were controlled. And with adequate control and no further need of resection the scope was backed out the patient had a vigorous stream then with the aid of a catheter guide especially because of the small amount of undermining at the 6 o'clock position the 24 Trinidadian catheter was advanced into the bladder without difficulty or resistance. The balloon was filled with 45 cc of sterile water and it was placed to gentle very gentle traction. With this the bladder was irrigated no further clot was noted in the urine was at most light pink. The catheter was connected to continuous bladder irrigation which was started and the catheter was secured with gentle traction. At this point the patient was awakened having tolerated the procedure well prostatic fossa well resected and there were no complications. Patient was transferred with continuous bladder irrigation to the postanesthesia care unit for recovery having tolerated the procedure well. Complications: none Post-operative Condition: stable Disposition: PACU Plan for aftercare: Patient will be recovered in the postanesthesia care unit with continuous bladder irrigation we will wean this off as able and gently release his traction as able also should be expected that the patient will have some small amount of blood at the meatus.
[2024-01-03] MEDS: PHENAZOPYRIDINE 100 MG TABLET 200 MG PO ×2 (12:29→21:11)
[2024-01-03] MEDS: OXYBUTYNIN 5 MG TABLET PO ×2 (12:29→21:11)
[2024-01-03] MEDS: HYOSCYAMINE 0.125 MG TABLET PO ×2 (12:29→13:20)
[2024-01-03] MEDS: OXYCODONE IR 5 MG TABLET PO (13:12)
--- NOTE | 2024-01-03 15:51 | SUR.PHASEII ---
Pt up to ambulate to the BR. Steady on feet, stood at bedside and then got pale cold and had to lie down . VS remained stable. Urine output between grade III and IV. Small amt of bleeding around catheter. at bedside. Drinking water and milton marlena.
--- NOTE | 2024-01-03 17:26 | SUR.PHASEII ---
Pt transferred to room 220 with SBAR report to Flores APODACA. Pt up to BSC in room. Pt with mohit bag.
--- NOTE | 2024-01-03 18:39 | PC.NURSE ---
Patient is putting out grade #3 urine color, which is strawberry colored urine. He complained of a full feeling in his bladder, opened up irrigation wide open and patient passed a small clot. He states that he is feeling better now. He was brought up to the floor around 1640. He has a 3 way monroe with NS irrigation. He is visiting with his at this time.
[2024-01-03] MEDS: SODIUM CHLORIDE 0.9% FLUSH 10 ML IV (22:13)
[2024-01-03] MEDS: ACETAMINOPHEN 325 MG TABLET 650 MG PO (23:35)
[2024-01-04] MEDS: ACETAMINOPHEN 325 MG TABLET 650 MG PO (03:15)
[2024-01-04 03:52] VITALS: BP 130/90; PULSE 108; RESP 18; TEMP 36.7; O2SAT 93
--- NOTE | 2024-01-04 07:58 | P.PN_ITS ---
Subjective Subjective Date Patient Seen: 01/04/24 Time Patient Seen: 07:58 Interval history: This patient did well overnight. He reports that he was able to eat and tolerated this he has been passing gas. His pain is minimal taking only Tylenol he did have a dose of oxybutynin and Pyridium. And his urine remained somewhat Pyridium stained today. His urine is otherwise a light blush to perhaps kaitlynn color. He has been up to the bowel movement the bowel complaints that he had yesterday have abated and he feels normal in states I am ready to go home. His situation was gone over with his nurse Elsie and we will discharge him to home to follow up my office in the morning for review. He will need to have his catheter for approximately 10 days and will go home with his catheter. Instructions were given. Exam Vital Signs (past 8 hours): - 01/04/24 03:52 Temperature 98.0 F Pulse Rate 108 H Respiratory Rate 18 Blood Pressure 130/90 Pulse Oximetry 93 Fraction of Inspired Oxygen 21 Oxygen Delivery Method Room Air Oxygen Flow Rate 0 Narrative Exam Narrative: General: This is an awake, alert, oriented, obese gentleman lying in his bed wearing corrective lenses. Lungs: Clear full and equal Cardiovascular exam: Regular rate and rhythm without murmur Abdominal exam: Obese nontender. Genitourinary exam: Circumcised male with [address] [place] hematuria catheter in place and blush to kaitlynn colored urine with the CBI turned off. Lower extremities are nontender. [facility] Medical History HTN (hypertension) HLD (hyperlipidemia) Slow urinary stream BPH with obstruction/lower urinary tract symptoms History of tobacco use Incomplete emptying of bladder Lower urinary tract symptoms Elevated PSA Secondhand smoke exposure History of kidney stones Asymptomatic microscopic hematuria History of kidney stones History of high blood pressure Hx of gout History of colon cancer Enlarged prostate PAUL (obstructive sleep apnea) Surgical History History of back surgery (1994) Status post right hemicolectomy (~2013) Social History marital status: number of children: 1 household members: spouse Smoking Status: Former smoker alcohol intake: current caffeine: No Type(s) of exercise: walking frequency: 3-4 times per week duration: > 90 minutes/day Assessment & Plan Assessment and plan (1) BPH with obstruction/lower urinary tract symptoms: Status: Acute (2) Incomplete emptying of bladder: Status: Acute Plan Assessment and plan: Patient doing well the morning after Aquablation. His urine is blush to kaitlynn in color with the CBI off. He is tolerating regular diet passing gas and has no pain complaints. Will discharge to home with follow-up my office in the morning for follow-up. Note he needs to have his catheter continued for at least 10 days to allow healing. Will discharge with oxybutynin and Pyridium to be used as needed. Verbal instructions were given to the patient.
[2024-01-04 08:00] VITALS: BP 142/88; PULSE 78; RESP 17; TEMP 36.9; O2SAT 94
[2024-01-04 08:14] VITALS: BP 142/88; PULSE 78
[2024-01-04] MEDS: allopurinoL 100 MG TABLET 300 MG PO (08:14)
[2024-01-04] MEDS: LEVOTHYROXINE 75 MCG TABLET 37.5 MCG PO (08:14)
[2024-01-04] MEDS: CHOLECALCIFEROL (VITAMIN D3) 1,000 UNIT TABLET 3000 UNIT PO (08:14)
[2024-01-04] MEDS: lisinopriL 10 MG TABLET PO (08:14)
[2024-01-04] MEDS: ATORVASTATIN 20 MG TABLET 40 MG PO (08:14)
[2024-01-04] MEDS: SODIUM CHLORIDE 0.9% FLUSH 10 ML IV (08:15)
--- NOTE | 2024-01-04 09:35 | CM.DANOTE ---
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 Yes Advance Directives on File Yes History Provided By Medical Record Prior Living Arrangements House Household Members spouse Type of transporation used prior to Drives own vehicle admit Independent with ADL's Yes Is patient alert and oriented? Yes Barriers to Discharge No Comment Discharged home with spouse this morning, no needs identified. Close outpatient follow up. Discharge Plan Home Transportation Arrangement Spouse Referrals Initiated None needed
--- NOTE | 2024-01-04 10:15 | PC.NURSE ---
Discharge: Pt agreeable to discharge. Expresses pain is managed. Education provided to patient on monroe catheter care, washing hands before and after cleansing area, follow-up tomorrow with Dr. Mccoy, stroke S/S, fall prevention. Pt able to teachback on catheter care. Catheter left in, third lumen plugged with specific device as advised by Dr. Mccoy. Pt educated on urine color, constipation prevention, new medications. Pt wheeled via w/c to private vehicle with PCT and spouse at approximately 0903.
== END 2024-01-04 09:03 | disposition home or self-care (01) ==
LOC: OR 09:11 → AC 16:46
PROVIDERS: PCP Family Medicine; Referring Provider Urology; Visit Provider Urology
PROC: 0VT08ZZ Resection of Prostate, Via Natural or Artificial Opening Endoscopic (ICD-10-PCS; CPT 0421T; principal; 2024-01-03 09:45)
DX: N40.1 Benign prostatic hyperplasia with lower urinary tract symptoms (principal); N13.8 Other obstructive and reflux uropathy; R33.9 Retention of urine, unspecified
CPT/HCPCS: 0421T; C2596; J0690; J1100; J2405; J2704; J3010

== ENCOUNTER → 2024-01-12 08:07 | Outpatient (CLI) | payer OTHER, SELFPAY ==
[2024-01-03 17:19] VITALS: BMI 37.2
== END ==
PROVIDERS: PCP Family Medicine; Visit Provider Urology
DX: N40.1 Benign prostatic hyperplasia with lower urinary tract symptoms (principal); N13.8 Other obstructive and reflux uropathy; R31.21 Asymptomatic microscopic hematuria; R33.9 Retention of urine, unspecified; Z87.442 Personal history of urinary calculi
CPT/HCPCS: 51798; 87077; 87086; 87186

== ENCOUNTER → 2024-01-20 08:50 | Outpatient (CLI) | payer OTHER, SELFPAY ==
[2024-01-03 17:19] VITALS: BMI 37.2
== END ==
PROVIDERS: PCP Family Medicine; Visit Provider Urology
DX: N40.1 Benign prostatic hyperplasia with lower urinary tract symptoms (principal); N13.8 Other obstructive and reflux uropathy; R30.0 Dysuria; R63.8 Other symptoms and signs concerning food and fluid intake
CPT/HCPCS: 51798; 81002; 87086

== ENCOUNTER → 2024-02-02 08:18 | Outpatient (CLI) | payer OTHER, SELFPAY ==
[2024-01-03 17:19] VITALS: BMI 37.2
== END ==
PROVIDERS: PCP Family Medicine; Visit Provider Urology
DX: R33.9 Retention of urine, unspecified (principal); R39.9 Unspecified symptoms and signs involving the genitourinary system
CPT/HCPCS: 87086

== ENCOUNTER → 2024-02-15 08:34 | Outpatient (CLI) | payer OTHER, SELFPAY ==
[2024-02-02 08:33] VITALS: BMI 37.2
== END ==
PROVIDERS: PCP Family Medicine; Referring Provider Urology; Visit Provider Urology
DX: N40.1 Benign prostatic hyperplasia with lower urinary tract symptoms (principal); N13.8 Other obstructive and reflux uropathy
CPT/HCPCS: 87086

== ENCOUNTER → 2024-12-11 07:20 | Outpatient (CLI) | payer OTHER, SELFPAY ==
[2024-02-02 08:33] VITALS: BMI 37.2
[2024-12-11 08:14] LABS: Add Manual Diff / Slide Review NO; Basophils Absolute Auto 100 /uL (0-100); Basophils Percent Auto 0.9 % (0-2); Eosinophils Absolute Auto 400 /uL (0-450); Eosinophils Percent Auto 4.8 % (2-4); Hematocrit 53.8 % (41-53); Hemoglobin 18.2 g/dL (13.5-17.5); Lymphocytes Absolute Auto 3400 /uL (1100-4500); Lymphocytes Percent Auto 46.2 % (25-40); Mean Corpuscular HGB Conc 33.8 % (30-36); Mean Corpuscular Hemoglobin 31.4 PG (26-34); Mean Corpuscular Volume 92.9 fL (80-100); Monocytes Absolute Auto 700 /uL (0-900); Monocytes Percent Auto 9.2 % (3-14); Neutrophils Absolute Auto 2900 /uL (1500-7000); Neutrophils Percent Auto 38.9 % (50-75); Platelet Count 163 X10^3/uL (150-400); Red Blood Cell Count 5.79 X10^6/uL (4.5-5.9); White Blood Cell Count 7.4 X10^3/uL (4.5-11.0)
[2024-12-11 08:44] LABS: Alanine Aminotransferase 31 IU/L (<50); Albumin 4.3 g/dL (3.5-5.0); Albumin Globulin Ratio 1.8 (1.0-2.8); Alkaline Phosphatase 59 U/L (38-126); Aspartate Aminotransferase 41 IU/L (17-59); BUN Creatinine Ratio 14.4 (6-22); Blood Urea Nitrogen 15 mg/dL (9-20); Calcium 9.7 mg/dL (8.4-10.2); Carbon Dioxide 23 mmol/L (22-32); Chloride 102 mmol/L (98-107); Cholesterol 201 mg/dL (140-199); Estimated Glomerular Filt Rate > 60 mL/min (>60); Globulin 2.4 g/dL (1.7-4.1); Glucose 104 mg/dL (70-99); HDL Cholesterol 64 mg/dL (40-60); HEMOLYSIS < 15 (0-50); LDL Cholesterol Calculated 98 mg/dL (<100); Potassium 4.6 mmol/L (3.4-5.1); Sodium 136 mmol/L (137-145); Total Protein 6.7 g/dL (6.3-8.2); Triglycerides 196 mg/dL (35-150); Uric Acid 4.9 mg/dL (3.5-8.5)
[2024-12-11 09:03] LABS: Prostate Specific Antigen 2.03 ng/mL (0.10-4.00)
== END ==
PROVIDERS: Urology; PCP Family Medicine; Referring Provider Family Medicine; Visit Provider Family Medicine
DX: Z00.00 Encounter for general adult medical examination without abnormal findings (principal); R97.20 Elevated prostate specific antigen [PSA]; E78.5 Hyperlipidemia, unspecified; Z86.79 Personal history of other diseases of the circulatory system; E03.9 Hypothyroidism, unspecified; Z87.39 Personal history of other diseases of the musculoskeletal system and connective tissue; C18.9 Malignant neoplasm of colon, unspecified
CPT/HCPCS: 36415; 80053; 80061; 84153; 84443; 84550; 85025

== ENCOUNTER → 2024-12-25 07:39 | Outpatient (CLI) | payer OTHER, SELFPAY ==
[2024-02-02 08:33] VITALS: BMI 37.2
--- NOTE | 2024-12-25 08:47 | DI.CT.S_ITS ---
PROCEDURE: CT ANGIO CHEST INDICATIONS: evaluating size of aorta TECHNIQUE: After the administration of intravenous contrast, 2 mm thick sections acquired from the pulmonary apices to the posterior costophrenic angles. 3-dimensional maximum intensity projection (MIP) coronal and sagittal reformats were then acquired through the thorax. For radiation dose reduction, the following was used: automated exposure control, adjustment of mA and/or kV according to patient size. COMPARISON: [facility], CT, CT CHEST ABD PEL W CON, 06/06/2019, 8:40. FINDINGS: Image quality: Diagnostic. Pulmonary arteries: Pulmonary arteries are normal in size, and demonstrate no intraluminal filling defects to suggest central pulmonary embolism. Lower Neck: No enlarged lymph nodes. Thyroid: No thyroid nodules which require sonographic follow up, per consensus guidelines. Axillae: No enlarged lymph nodes. Chest Wall: Unremarkable. Bones: Unremarkable. Lungs and Pleura: No pneumothorax or pleural effusions. Stable mild pleural thickening in the left upper lung anteriorly, therefore most likely benign. Heart: Heart size is normal. No pericardial effusion. Thoracic Vessels: The ascending aorta measures 4.1 cm, the aortic arch measures 3 cm and the descending aorta measures 2.7 cm. There is mild to moderate atherosclerotic disease, no saccular aneurysm. . Mediastinum and Jazlyn: No enlarged lymph nodes. Esophagus: No wall thickening. No hiatal hernia. Upper Abdomen: Visualized upper abdomen solid organs and bowel loops appear normal. IMPRESSION: Mild ectasia of the ascending aorta measuring 4.1 cm, stable compared to prior study. No acute cardiopulmonary process. Dictated by: Carl Rousseau M.D. on 12/25/2024 at 14:56 Approved by: Carl Rousseau M.D. on 12/25/2024 at 15:02
== END ==
LOC: CT 07:40
PROVIDERS: PCP Family Medicine; Referring Provider Family Medicine; Visit Provider Family Medicine
DX: I77.810 Thoracic aortic ectasia (principal); I70.90 Unspecified atherosclerosis
CPT/HCPCS: 71275; Q9967

== ENCOUNTER → 2025-01-18 08:24 | Outpatient (CLI) | payer OTHER, SELFPAY ==
[2024-02-02 08:33] VITALS: BMI 37.2
[2025-01-18 09:56] LABS: Thyroid Stimulating Hormone 3.25 uIU/mL (0.47-4.68)
== END ==
PROVIDERS: PCP Family Medicine; Referring Provider Family Medicine; Visit Provider Family Medicine
DX: E03.9 Hypothyroidism, unspecified (principal)
CPT/HCPCS: 36415; 84443